=== PATIENT | female | born 1985 | race Caucasian/White ===

== ENCOUNTER 2018-07-26 21:17 | Inpatient (IN) ==
[2018-07-26] MEDS ORDERED: Acetaminophen 325 MG Tablet PO ONE (21:57)
[2018-07-26] MEDS ORDERED: Sod Chloride 0.9% Inj 1,000 ML IV.SIG SCH (22:00)
--- NOTE | 2018-07-26 22:34 | XR ---
EXAM DATE: 07/26/2018 10:30 PM EST AGE/SEX: 32 years / Female INDICATIONS: Chest pain. CLINICAL DATA: This is the patient's initial encounter. Patient reports that signs and symptoms have been present for 1 day and indicates a pain score of 5/10. MEDICAL/SURGICAL HISTORY: None. None. COMPARISON: No prior exams available for comparison. FINDINGS: Bilateral, primarily basilar infiltrates and small effusions. Cardiac contours are grossly satisfacto ry. CONCLUSION: Bilateral infiltrates and small effusions Electronically signed by: Ramiro Smiley MD Board Certified Radiologist 07/26/2018 10:33 PM EST
[2018-07-26 22:41] LABS: Baso % (Auto) 0.1 % (0.0-2.0); Eos % (Auto) 0.1 % (0.0-4.0); Hematocrit 32.8 % (35.0-46.0); Hemoglobin 11.2 gm/dL (11.6-15.3); Lymph # (Auto) 1.9 th/mm3 (1.0-4.8); Lymph % (Auto) 13.5 % (9.0-44.0); Mean Corpuscular HGB Conc 34.1 % (32.0-36.0); Mean Corpuscular Volume 84.9 fL (80.0-100.0); Mean Platelet Volume 7.7 fL (7.0-11.0); Mono # (Auto) 1.1 th/mm3 (0.0-0.9); Neut # (Auto) 11.1 th/mm3 (1.8-7.7); Neut % (Auto) 78.3 % (16.0-70.0); Platelet Count 354 th/mm3 (150-450); Red Blood Count 3.86 mil/mm3 (4.00-5.30); White Blood Count 14.1 th/mm3 (4.0-11.0)
[2018-07-26 22:53] LABS: Alkaline Phosphatase 267 U/L (45-117); Total Protein 8.3 g/dL (6.4-8.2)
[2018-07-26] MEDS ORDERED: Vancomycin Inj 1,000 MG in Sodium Chlor 0.9% Inj 250 ML IV.SIG ONE (22:59)
[2018-07-26 23:00] LABS: Bacteria,Urine Occasional /hpf; Bilirubin,Urine Negative (Negative); Clarity,Urine Hazy (Clear); Color,Urine Amber (Yellw/Straw); Glucose,Urine (UA) Negative (Negative); Leukocyte Esterase,Urine Small (Negative); Mucus,Urine Few /lpf (Occasional); Nitrite,Urine Negative (Negative); Specific Gravity,Urine 1.016 (1.002-1.035); Squamous Epithelial Cell,Urine 5 /hpf (0-5); Urobilinogen,Urine 4 or Greater mg/dL (Less than 2)
[2018-07-26] MEDS ORDERED: Piperacil/Tazo 4.5 GM Premix 4.5 GM/100 ML BAG IV.SIG SCH (23:00)
[2018-07-26 23:02] LABS: Alanine Aminotransferase 22 U/L (10-53); Albumin 2.5 g/dL (3.4-5.0); Anion Gap 9 meq/L (5-15); Aspartate Aminotransferase 31 U/L (15-37); Blood Urea Nitrogen 4 mg/dL (7-18); Calcium 8.1 mg/dL (8.5-10.1); Carbon Dioxide 30.3 meq/L (21.0-32.0); Chloride 94 meq/L (98-107); Glomerular Filtration Rate Greater Than 89 mL/min (>89); Glucose,Random 119 mg/dL (74-106); Magnesium 1.6 mg/dL (1.5-2.5); Potassium 3.2 meq/L (3.5-5.1); Sodium 133 meq/L (136-145)
[2018-07-26 23:25] LABS: Amphetamine Screen,Urine Neg (Neg); Barbiturate Screen,Urine Neg (Neg); Cannabinoid Screen,Urine Neg (Neg); Cocaine Screen,Urine Neg (Neg)
[2018-07-26 23:27] LABS: Opiate Screen,Urine Pos (Neg)
--- NOTE | 2018-07-26 23:52 | ED ---
HPI General Chief complaint: Chest Pain Stated complaint: chest and back pain complaint Time Seen by Provider: 07/26/18 21:55 Source: patient Mode of arrival: ambulatory Limitations: no limitations History of Present Illness HPI narrative: 32-year-old female came to the emergency room with history of cough, fever, chest pain for past 10 days. Patient is an IV drug abuser. Patient says that the last time she injected IV Dilaudid was 1 month back. No known sick contacts. However patient says that her son has started to cough for past 2 days as well. Patient had a temperature of 102.5 upon arrival. She says she has been taking Tylenol but the last dose was in the morning. Tachycardic upon arrival. She is awake and answering questions appropriately. Patient denies having any previous endocarditis, hepatitis or HIV. She describes the chest pain on the left side without any radiation. No aggravating or relieving symptoms identified. Related Data Home Medications Medication Instructions Recorded Confirmed No Known Home Medications 07/26/18 07/26/18 Allergies Allergy/AdvReac Type Severity Reaction Status Date / Time No Known Allergies Allergy Verified 07/26/18 21:23 Review of Systems ROS: all other systems reviewed are negative [facility] Medical History Medical History IV drug abuse (Acute) Surgical History Surgical History No history of previous surgery (Acute) Family History Family History Other Family history normal Social History Social History Substance History: Active Abuse Second Hand Smoke Exposure: Yes Smoking Status: Current every day smoker Tobacco Type: Cigarettes How Often Do You Have a Drink Containing Alcohol: Never Recent Travel in [facility] within the Last 8 Weeks: No Recent Out of Country Travel within the Last 8 Weeks: No Substance Abuse Detail Opiates: Substance Use Status: Early Remission Route Used Substance Abuse: Intravenously Immunization History Tetanus Immunization: >5 Years Exam Narrative Exam Narrative: GENERAL: Awake, alert, anxious, moderate distress SKIN: Focused skin assessment warm/dry. HEAD: Atraumatic. Normocephalic. EYES: Pupils equal and round. No scleral icterus. No injection or drainage. ENT: No nasal bleeding or discharge. Mucous membranes pink and moist. NECK: Trachea midline. No JVD. CARDIOVASCULAR: Regular rate and rhythm. No murmur appreciated. RESPIRATORY: No accessory muscle use. Fine bibasilar crackles GASTROINTESTINAL: Abdomen soft, non-tender, nondistended. Hepatic and splenic margins not palpable. MUSCULOSKELETAL: No obvious deformities. No clubbing. No cyanosis. No edema. NEUROLOGICAL: Awake and alert. No obvious cranial nerve deficits. Motor grossly within normal limits. Normal speech. PSYCHIATRIC: Appropriate mood and affect; insight and judgment normal. Procedures Ultrasound POC Ultrasound Procedure: Emergency department cardiac ultrasound was performed with patient consent. Small curvilinear probe was used in the epigastric, parasternal long/short access, four-chamber apical revealing no evidence of pericardial effusion. Patient's overall cardiac squeeze was hyper dynamic. I could see a large vegetation on the mitral valve leaflet. Course Initial Documented Vital Signs Temperature 102.7 F H 07/26/18 21:21 Pulse Rate 119 H 07/26/18 21:21 Respiratory Rate 18 07/26/18 21:21 Blood Pressure 114/58 L 07/26/18 21:21 Pulse Oximetry 97 07/26/18 21:21 Last Documented Vital Signs Temperature 97.9 F 08/02/18 04:00 Pulse Rate 39 L 08/02/18 04:00 Respiratory Rate 18 08/02/18 04:00 Blood Pressure 123/64 08/02/18 04:00 Pulse Oximetry 99 08/02/18 04:00 Critical Care Time Critical Care Time: Yes Total Critical Care Time: 30 Attestation: Aggregate critical care time was 30 minutes. Time to perform other separately billable procedures was not included in the critical care time. My time did not include minutes spent treating any other patients simultaneously or on activities that did not directly contribute to the patient's treatment. The services I provided to this patient were to treat and/or prevent clinically significant deterioration that could result in: Sepsis, possible bacterial endocarditis, IV drug abuse, sepsis protocol I provided critical care services requiring my management, as noted below: Chart data review, documentation time, medication orders and management, vital sign assessments/reviewing monitor data, ordering and reviewing lab tests, ordering and interpreting/reviewing x-rays and diagnostic studies, care of the patient and discussion of the patient with the admitting physicians. Medical Decision Making MDM Narrative Medical decision making narrative: 11:30 PM given her IV drug abuse history I did a quick bedside [id number] ultrasound looking at her heart. I could see a large vegetation in the mitral valve. Heart was hyperdynamic. Blood test results are back and patient has leukocytosis with left shift. Chest x-ray is suggestive of bilateral infiltrates and small bilateral pleural effusion. My suspicion is extremely high for rectal endocarditis. I have given her IV Zosyn and IV vancomycin. I discussed this with the hospitalist was accepted the patient. Have ordered a 2D echocardiogram which I was told would be done in the morning. Medical Screen Exam Complete: Yes Emergency Medical Condition: Yes Lab Data Result diagrams: 07/29/18 10:14 07/29/18 10:14 Lab Results 07/26/18 07/26/18 07/26/18 Range/Units 22:15 22:15 22:15 WBC 14.1 H (4.0-11.0) th/mm3 RBC 3.86 L (4.00-5.30) mil/mm3 Hgb 11.2 L (11.6-15.3) gm/dL Hct 32.8 L (35.0-46.0) % MCV 84.9 (80.0-100.0) fL MCH 29.0 (27.0-34.0) pg MCHC 34.1 (32.0-36.0) % RDW 15.0 (11.6-17.2) % Plt Count 354 (150-450) th/mm3 MPV 7.7 (7.0-11.0) fL Neut % (Auto) 78.3 H (16.0-70.0) % Lymph % (Auto) 13.5 (9.0-44.0) % Mclean % (Auto) 8.0 (0.0-8.0) % Eos % (Auto) 0.1 (0.0-4.0) % Baso % (Auto) 0.1 (0.0-2.0) % Neut # (Auto) 11.1 H (1.8-7.7) th/mm3 Lymph # (Auto) 1.9 (1.0-4.8) th/mm3 Mclean # (Auto) 1.1 H (0.0-0.9) th/mm3 Eos # (Auto) 0.0 (0.0-0.4) th/mm3 Baso # (Auto) 0.0 (0.0-0.2) th/mm3 WBC Differential . Differential Comment Auto diff final Sodium 133 L (136-145) meq/L Potassium 3.2 L (3.5-5.1) meq/L Chloride 94 L (98-107) meq/L Carbon Dioxide 30.3 (21.0-32.0) meq/L Anion Gap 9 (5-15) meq/L BUN 4 L (7-18) mg/dL Creatinine 0.63 (0.50-1.00) mg/dL Estimated GFR Greater than 89 (>89) mL/min Random Glucose 119 H (74-106) mg/dL Lactic Acid 1.5 (0.4-2.0) mmol/L Calcium 8.1 L (8.5-10.1) mg/dL Magnesium 1.6 (1.5-2.5) mg/dL Total Bilirubin 0.9 (0.2-1.0) mg/dL AST 31 (15-37) U/L ALT 22 (10-53) U/L Alkaline Phosphatase 267 H (45-117) U/L Total Protein 8.3 H (6.4-8.2) g/dL Albumin 2.5 L (3.4-5.0) g/dL Urine Color (Yellw/Straw) Urine Clarity (Clear) Urine pH (5.0-8.5) Ur Specific [employer] Mdl (1.002-1.035) Urine Protein (Neg-Trace) mg/dL Urine Glucose (UA) (Negative) mg/dL Urine Ketones (Negative) mg/dL Urine Occult Blood (Negative) Urine Nitrate (Negative) Urine Bilirubin (Negative) Urine Urobilinogen (Less than 2) mg/dL Ur Leukocyte Esterase (Negative) Urine RBC (0-3) /hpf Urine WBC (0-5) /hpf Ur Squamous Epith Cells (0-5) /hpf Urine Bacteria (None) /hpf Urine Mucus (Occasional) /lpf Micro UA Comment Ur Microscopic Review Urine Culture Comments Vancomycin Trough (5.0-10.0) mcg/mL Urine Opiates Screen (Neg) Ur Barbiturates Screen (Neg) Ur Amphetamines Screen (Neg) U Benzodiazepines Scrn (Neg) Urine Cocaine Screen (Neg) U Cannabinoids Screen (Neg) RPR (Nonreactive) Chlam trachomat DNA PCR (Not Detect) Hepatitis A IgM Ab (Nonreactive) Hep Bs Antigen (Nonreactive) Hep B Core IgM Ab (Nonreactive) Hep C IgG Ab (Nonreactive) HIV 1&2 Ab/P24 Ag 4thGn (Nonreactive) N.gonorrhoeae DNA (PCR) (Not Detect) 07/26/18 07/26/18 07/26/18 Range/Units 22:30 22:30 22:30 WBC (4.0-11.0) th/mm3 RBC (4.00-5.30) mil/mm3 Hgb (11.6-15.3) gm/dL Hct (35.0-46.0) % MCV (80.0-100.0) fL MCH (27.0-34.0) pg MCHC (32.0-36.0) % RDW (11.6-17.2) % Plt Count (150-450) th/mm3 MPV (7.0-11.0) fL Neut % (Auto) (16.0-70.0) % Lymph % (Auto) (9.0-44.0) % Mclean % (Auto) (0.0-8.0) % Eos % (Auto) (0.0-4.0) % Baso % (Auto) (0.0-2.0) % Neut # (Auto) (1.8-7.7) th/mm3 Lymph # (Auto) (1.0-4.8) th/mm3 Mclean # (Auto) (0.0-0.9) th/mm3 Eos # (Auto) (0.0-0.4) th/mm3 Baso # (Auto) (0.0-0.2) th/mm3 WBC Differential Differential Comment Sodium (136-145) meq/L Potassium (3.5-5.1) meq/L Chloride (98-107) meq/L Carbon Dioxide (21.0-32.0) meq/L Anion Gap (5-15) meq/L BUN (7-18) mg/dL Creatinine (0.50-1.00) mg/dL Estimated GFR (>89) mL/min Random Glucose (74-106) mg/dL Lactic Acid (0.4-2.0) mmol/L Calcium (8.5-10.1) mg/dL Magnesium (1.5-2.5) mg/dL Total Bilirubin (0.2-1.0) mg/dL AST (15-37) U/L ALT (10-53) U/L Alkaline Phosphatase (45-117) U/L Total Protein (6.4-8.2) g/dL Albumin (3.4-5.0) g/dL Urine Color Lu[place] (Yellw/Straw) Urine Clarity Hazy H (Clear) Urine pH 6.0 (5.0-8.5) Ur Specific [employer] Mdl 1.016 (1.002-1.035) Urine Protein 100 H (Neg-Trace) mg/dL Urine Glucose (UA) Negative (Negative) mg/dL Urine Ketones Negative (Negative) mg/dL Urine Occult Blood Small H (Negative) Urine Nitrate Negative (Negative) Urine Bilirubin Negative (Negative) Urine Urobilinogen 4 or greater (Less than 2) mg/dL Ur Leukocyte Esterase Small H (Negative) Urine RBC 3 (0-3) /hpf Urine WBC 4 (0-5) /hpf Ur Squamous Epith Cells 5 (0-5) /hpf Urine Bacteria Occasional H (None) /hpf Urine Mucus Few H (Occasional) /lpf Micro UA Comment Culture not ind Ur Microscopic Review Not Reportable Urine Culture Comments Culture not ind Vancomycin Trough (5.0-10.0) mcg/mL Urine Opiates Screen Pos H (Neg) Ur Barbiturates Screen Neg (Neg) Ur Amphetamines Screen Neg (Neg) U Benzodiazepines Scrn Neg (Neg) Urine Cocaine Screen Neg (Neg) U Cannabinoids Screen Neg (Neg) RPR (Nonreactive) Chlam trachomat DNA PCR Detected (Not Detect) Hepatitis A IgM Ab (Nonreactive) Hep Bs Antigen (Nonreactive) Hep B Core IgM Ab (Nonreactive) Hep C IgG Ab (Nonreactive) HIV 1&2 Ab/P24 Ag 4thGn (Nonreactive) N.gonorrhoeae DNA (PCR) Not detected (Not Detect) 07/27/18 07/27/18 07/28/18 Range/Units 17:00 17:00 23:50 WBC (4.0-11.0) th/mm3 RBC (4.00-5.30) mil/mm3 Hgb (11.6-15.3) gm/dL Hct (35.0-46.0) % MCV (80.0-100.0) fL MCH (27.0-34.0) pg MCHC (32.0-36.0) % RDW (11.6-17.2) % Plt Count (150-450) th/mm3 MPV (7.0-11.0) fL Neut % (Auto) (16.0-70.0) % Lymph % (Auto) (9.0-44.0) % Mclean % (Auto) (0.0-8.0) % Eos % (Auto) (0.0-4.0) % Baso % (Auto) (0.0-2.0) % Neut # (Auto) (1.8-7.7) th/mm3 Lymph # (Auto) (1.0-4.8) th/mm3 Mclean # (Auto) (0.0-0.9) th/mm3 Eos # (Auto) (0.0-0.4) th/mm3 Baso # (Auto) (0.0-0.2) th/mm3 WBC Differential Differential Comment Sodium (136-145) meq/L Potassium (3.5-5.1) meq/L Chloride (98-107) meq/L Carbon Dioxide (21.0-32.0) meq/L Anion Gap (5-15) meq/L BUN (7-18) mg/dL Creatinine (0.50-1.00) mg/dL Estimated GFR (>89) mL/min Random Glucose (74-106) mg/dL Lactic Acid (0.4-2.0) mmol/L Calcium (8.5-10.1) mg/dL Magnesium (1.5-2.5) mg/dL Total Bilirubin (0.2-1.0) mg/dL AST (15-37) U/L ALT (10-53) U/L Alkaline Phosphatase (45-117) U/L Total Protein (6.4-8.2) g/dL Albumin (3.4-5.0) g/dL Urine Color (Yellw/Straw) Urine Clarity (Clear) Urine pH (5.0-8.5) Ur Specific [employer] Mdl (1.002-1.035) Urine Protein (Neg-Trace) mg/dL Urine Glucose (UA) (Negative) mg/dL Urine Ketones (Negative) mg/dL Urine Occult Blood (Negative) Urine Nitrate (Negative) Urine Bilirubin (Negative) Urine Urobilinogen (Less than 2) mg/dL Ur Leukocyte Esterase (Negative) Urine RBC (0-3) /hpf Urine WBC (0-5) /hpf Ur Squamous Epith Cells (0-5) /hpf Urine Bacteria (None) /hpf Urine Mucus (Occasional) /lpf Micro UA Comment Ur Microscopic Review Urine Culture Comments Vancomycin Trough 7.8 (5.0-10.0) mcg/mL Urine Opiates Screen (Neg) Ur Barbiturates Screen (Neg) Ur Amphetamines Screen (Neg) U Benzodiazepines Scrn (Neg) Urine Cocaine Screen (Neg) U Cannabinoids Screen (Neg) RPR Nonreactive (Nonreactive) Chlam trachomat DNA PCR (Not Detect) Hepatitis A IgM Ab (Nonreactive) Hep Bs Antigen (Nonreactive) Hep B Core IgM Ab (Nonreactive) Hep C IgG Ab (Nonreactive) HIV 1&2 Ab/P24 Ag 4thGn Nonreactive (Nonreactive) N.gonorrhoeae DNA (PCR) (Not Detect) 07/29/18 07/29/18 07/29/18 Range/Units 10:14 10:14 10:14 WBC 5.7 (4.0-11.0) th/mm3 RBC 3.23 L (4.00-5.30) mil/mm3 Hgb 9.6 L (11.6-15.3) gm/dL Hct 27.8 L (35.0-46.0) % MCV 86.1 (80.0-100.0) fL MCH 29.6 (27.0-34.0) pg MCHC 34.4 (32.0-36.0) % RDW 15.4 (11.6-17.2) % Plt Count 291 (150-450) th/mm3 MPV 7.9 (7.0-11.0) fL Neut % (Auto) 61.2 (16.0-70.0) % Lymph % (Auto) 27.0 (9.0-44.0) % Mclean % (Auto) 10.0 H (0.0-8.0) % Eos % (Auto) 1.2 (0.0-4.0) % Baso % (Auto) 0.6 (0.0-2.0) % Neut # (Auto) 3.5 (1.8-7.7) th/mm3 Lymph # (Auto) 1.5 (1.0-4.8) th/mm3 Mclean # (Auto) 0.6 (0.0-0.9) th/mm3 Eos # (Auto) 0.1 (0.0-0.4) th/mm3 Baso # (Auto) 0.0 (0.0-0.2) th/mm3 WBC Differential . Differential Comment Auto diff final Sodium 140 (136-145) meq/L Potassium 4.3 (3.5-5.1) meq/L Chloride 104 (98-107) meq/L Carbon Dioxide 30.9 (21.0-32.0) meq/L Anion Gap 5 (5-15) meq/L BUN 3 L (7-18) mg/dL Creatinine 0.55 (0.50-1.00) mg/dL Estimated GFR Greater than 89 (>89) mL/min Random Glucose 122 H (74-106) mg/dL Lactic Acid (0.4-2.0) mmol/L Calcium 8.0 L (8.5-10.1) mg/dL Magnesium (1.5-2.5) mg/dL Total Bilirubin (0.2-1.0) mg/dL AST (15-37) U/L ALT (10-53) U/L Alkaline Phosphatase (45-117) U/L Total Protein (6.4-8.2) g/dL Albumin (3.4-5.0) g/dL Urine Color (Yellw/Straw) Urine Clarity (Clear) Urine pH (5.0-8.5) Ur Specific [employer] Mdl (1.002-1.035) Urine Protein (Neg-Trace) mg/dL Urine Glucose (UA) (Negative) mg/dL Urine Ketones (Negative) mg/dL Urine Occult Blood (Negative) Urine Nitrate (Negative) Urine Bilirubin (Negative) Urine Urobilinogen (Less than 2) mg/dL Ur Leukocyte Esterase (Negative) Urine RBC (0-3) /hpf Urine WBC (0-5) /hpf Ur Squamous Epith Cells (0-5) /hpf Urine Bacteria (None) /hpf Urine Mucus (Occasional) /lpf Micro UA Comment Ur Microscopic Review Urine Culture Comments Vancomycin Trough (5.0-10.0) mcg/mL Urine Opiates Screen (Neg) Ur Barbiturates Screen (Neg) Ur Amphetamines Screen (Neg) U Benzodiazepines Scrn (Neg) Urine Cocaine Screen (Neg) U Cannabinoids Screen (Neg) RPR (Nonreactive) Chlam trachomat DNA PCR (Not Detect) Hepatitis A IgM Ab Nonreactive (Nonreactive) Hep Bs Antigen Nonreactive (Nonreactive) Hep B Core IgM Ab Nonreactive (Nonreactive) Hep C IgG Ab Nonreactive (Nonreactive) HIV 1&2 Ab/P24 Ag 4thGn (Nonreactive) N.gonorrhoeae DNA (PCR) (Not Detect) Imaging Data Radiologist's impression: Chest X-Ray 07/26/18 21:58 CONCLUSION: Bilateral infiltrates and small effusions Abdomen/Pelvis CT 07/28/18 00:00 CONCLUSION: 1. Hepatosplenomegaly. 2. No abscess is seen. 3. Gallbladder wall thickening. This can be seen with hepatic disease. The cause of the gallbladder wall thickening is nonspecific. 4. 3.4 cm cystic area in the right adnexa likely related to a right ovarian cyst. 5. Mild ascites seen in the pelvis. Chest CT 07/28/18 00:00 CONCLUSION: 1. Dense consolidation in the inferior lower lobes, inferior right middle lobe , and inferior left lingula. There is more patchy consolidation in the inferior right upper lobe. This could be secondary to multiple areas of inflammatory change/pneumonia. 2. Adenopathy in the mediastinum. Is nonspecific. It could relate be reactive. 3. Mild bilateral pleural effusions. Lumbar Spine MRI 07/29/18 00:00 CONCLUSION: Small disc protrusions in the low thoracic spine. No evidence of discitis or epidural abscess ECG Data Attestation: I personally reviewed and interpreted this ECG as follows: Interpretation: Twelve-lead EKG was reviewed by me. Sinus rhythm, normal axis, tachycardia, nonspecific ST-T wave changes. Heart rate of 115 bpm. Discharge Plan Discharge Disposition Patient Disposition: ED Admit(ED Internal Use Only) Discharge Order Discharge Orders: ED Use Only Admit Order (Routine); Ordered 07/26/18 Ordered By: Tyrone Hassan Physicians Team ED Provider: Tyrone Hassan Primary Care Provider: Primary Care Sera,No Attending Provider: Jairo Kimbrough Other Providers: Cinthya Harden Status ED Status: Left Department Discharge Information Discharge Date/Time: 07/27/18 02:29
[2018-07-27] MEDS ORDERED: Vancomycin Consult Pharmacy OTHER PRN (00:36)
[2018-07-27] MEDS ORDERED: Bisacodyl 10 MG Supp RECTAL PRN (00:38)
[2018-07-27] MEDS ORDERED: Acetaminophen 325 MG Tablet PO PRN (00:38)
--- NOTE | 2018-07-27 01:15 | P.HP ---
History of Present Illness Service: [facility] Primary Care Physician: No Primary Care Physician History of Present Illness: 32-year-old female with a past medical history significant for IV drug abuse presents to the emergency department for evaluation of back, neck, chest pain and cough productive of white sputum times 2 days. She endorses accompanying fever/chills. She is febrile and tachycardic on admission. Bedside ultrasound done in the emergency department showed large vegetation on the mitral valve leaflet. The patient reports her back pain is migratory and transient stating sometimes it is up by her shoulders and sometimes it is in her lower back. She is ambulating without difficulty. No lower extremity weakness or loss of bowel/ bladder. No abdominal pain. No nausea/vomiting/diarrhea. Inpatient Certification: I certify that the inpatient services were ordered in accordance with Medicare regulations governing the order. This includes certification that hospital inpatient services are reasonable and necessary and in the case of services not specified as inpatient-only under 42 CFR 419.22(n), that they are appropriately provided as inpatient services in accordance to with the 2-midnight benchmark under 43 CFR 412.3(e) Estimated Total Length of Stay (Days): 3 Plans for Post Hospital Care: Not yet determined Review of Systems All other systems reviewed negative except as stated in HPI [facility] - History History Provided By: Patient - Medical History Medical History: Medical History (Last Updated 07/27/18 @ 01:12 by Yin eGe MD) IV drug abuse - Surgical History Surgical History: Surgical History (Last Reviewed 07/27/18 @ 01:12 by Yin Gee MD) No history of previous surgery - Family History Family History: Family History (Last Updated 07/27/18 @ 01:12 by Yin Gee MD) Other Family history normal - Social History I have reviewed the patient's Social History: Yes - Tobacco History Tobacco Use In Past 30 Days: Yes Smoking Status: Current every day smoker Tobacco Type: Cigarettes - Alcohol History How Often Do You Have a Drink Containing Alcohol: Never - Substance Use History Substance History: Active Abuse - Substance Use Type Opiates Status: Early Remission Route Used: Intravenously - Travel History Recent Travel in the [place] Within the Last 8 Weeks: No Recent Travel Out of the Country Within the Last 8 Weeks: No - Immunization History Tetanus Immunization: >5 Years Medications and Allergies Active Medications: Active Medications Acetaminophen (Tylenol) 650 mg PO Q4H PRN PRN Reason: Temp > 100.4 Al Hydroxide/Mg Hydroxide (Milk Of Magnesia Liq) 30 ml PO Q12H PRN PRN Reason: Mild Constipation Bisacodyl (Dulcolax Supp) 10 mg RECTAL DAILY PRN PRN Reason: SEVERE CONSITIPATION Piperacillin/Tazobactam/Dextrose (Zosyn 4.5 Gm Premix) 4.5 gm in 100 mls @ 200 mls/hr IV.SIG ONCE LEXI Last Infusion: 07/26/18 23:45 Dose: Infused Sodium Chloride (Ns Inj) 1,000 mls @ 100 mls/hr IV.CONT .Q10H LEXI Piperacillin/Tazobactam/Dextrose (Zosyn 3.375 Gm Premix) 3.375 gm in 50 mls @ 100 mls/hr IV.SIG Q6H LEXI Lactulose (Lactulose Liq) 30 ml PO DAILY PRN PRN Reason: SEVERE CONSITIPATION Morphine Sulfate (Morphine Inj) 2 mg IV.PUSH Q4H PRN PRN Reason: pain 6-10 Ondansetron HCl (Zofran Inj) 4 mg IV.PUSH Q6H PRN PRN Reason: NAUSEA OR VOMITING Pharmacy Profile Note (Vancomycin Consult Pharmacy) 1 each OTHER UNSCH PRN PRN Reason: Pharmacy to dose Senna/Docusate Sodium (Katie-Colace) 1 tab PO BID [facility] Sennosides (Senokot) 17.2 mg PO Q12H PRN PRN Reason: Moderate Constipation Sodium Chloride (Ns Flush) 2 ml IV.FLUSH BID LEXI Sodium Chloride (Ns Flush) 2 ml IV.FLUSH PRN PRN PRN Reason: FLUSH AFTER USING IV ACCESS Allergies Allergy/AdvReac Type Severity Reaction Status Date / Time No Known Allergies Allergy Verified 07/26/18 21:23 Home Medications Medication Instructions Recorded Confirmed Type No Known Home Medications 07/26/18 07/26/18 History Exam Vital signs: Vital Signs 07/26/18 21:21 07/26/18 21:39 07/26/18 22:15 Temperature 102.7 F H 102.9 F H Pulse Rate 119 H 123 H Respiratory Rate 18 Blood Pressure 114/58 L 107/65 Pulse Oximetry 97 97 97 07/27/18 00:27 07/27/18 00:45 Temperature 99.1 F 99.1 F Pulse Rate 81 Respiratory Rate 14 Blood Pressure 97/58 L Pulse Oximetry 98 Intake & Output 07/26/18 07/26/18 07/27/18 06:59 18:59 06:59 Intake Total 1100 / 1100 Balance 1100 / 1100 Weight 41.73 kg Intake: IV 1100 / 1100 Zosyn 4.5 GM Premix 4.5 gm In 100 / 100 100 ml @ 200 mls/hr IV.SIG ONCE ELXI Rx#:[id number] NS Inj 1,000 ML @ 1000 mls/hr 1000 / 1000 IV.SIG BOLUS LEXI Rx#:[id number] Narrative: Gen.: No acute distress. Thin, female. Head: Normocephalic. Atraumatic. EENT: Pupils equal round and reactive to light. Nose without drainage. Airway intact. Throat without injection. Cardiovascular: Regular rate and rhythm. No murmurs, rubs or gallops. Respiratory: Lungs clear to auscultation bilaterally. No wheezes or rhonchi. Abdomen: Soft, nontender, nondistended. No peritoneal signs. Musculoskeletal: No gross deformities. No edema. Skin: No obvious rashes or erythema. Neuro: Sensory and motor grossly intact. Cranial nerves II through XII grossly intact. Results - Labs CBC & Chem 7: 07/26/18 22:15 07/26/18 22:15 Labs: Laboratory Results - last 24 hr 07/26/18 07/26/18 07/26/18 22:15 22:15 22:15 WBC 14.1 H RBC 3.86 L Hgb 11.2 L Hct 32.8 L MCV 84.9 MCH 29.0 MCHC 34.1 RDW 15.0 Plt Count 354 MPV 7.7 Neut % (Auto) 78.3 H Lymph % (Auto) 13.5 [place] % (Auto) 8.0 Eos % (Auto) 0.1 Baso % (Auto) 0.1 Neut # (Auto) 11.1 H Lymph # (Auto) 1.9 [place] # (Auto) 1.1 H Eos # (Auto) 0.0 Baso # (Auto) 0.0 WBC Differential . Differential Comment Auto diff final Sodium 133 L Potassium 3.2 L Chloride 94 L Carbon Dioxide 30.3 Anion Gap 9 BUN 4 L Creatinine 0.63 Estimated GFR Greater than 89 Random Glucose 119 H Lactic Acid 1.5 Calcium 8.1 L Magnesium 1.6 Total Bilirubin 0.9 AST 31 ALT 22 Alkaline Phosphatase 267 H Total Protein 8.3 H Albumin 2.5 L Urine Color Urine Clarity Urine pH Ur Specific [place] Urine Protein Urine Glucose (UA) Urine Ketones Urine Occult Blood Urine Nitrate Urine Bilirubin Urine Urobilinogen Ur Leukocyte Esterase Urine RBC Urine WBC Ur Squamous Epith Cells Urine Bacteria Urine Mucus Micro UA Comment Ur Microscopic Review Urine Culture Comments Urine Opiates Screen Ur Barbiturates Screen Ur Amphetamines Screen U Benzodiazepines Scrn Urine Cocaine Screen U Cannabinoids Screen 07/26/18 07/26/18 22:30 22:30 WBC RBC Hgb Hct MCV MCH MCHC RDW Plt Count MPV Neut % (Auto) Lymph % (Auto) [place] % (Auto) Eos % (Auto) Baso % (Auto) Neut # (Auto) Lymph # (Auto) [place] # (Auto) Eos # (Auto) Baso # (Auto) WBC Differential Differential Comment Sodium Potassium Chloride Carbon Dioxide Anion Gap BUN Creatinine Estimated GFR Random Glucose Lactic Acid Calcium Magnesium Total Bilirubin AST ALT Alkaline Phosphatase Total Protein Albumin Urine Color [place] Urine Clarity Hazy H Urine pH 6.0 Ur Specific [place] 1.016 Urine Protein 100 H Urine Glucose (UA) Negative Urine Ketones Negative Urine Occult Blood Small H Urine Nitrate Negative Urine Bilirubin Negative Urine Urobilinogen 4 or greater Ur Leukocyte Esterase Small H Urine RBC 3 Urine WBC 4 Ur Squamous Epith Cells 5 Urine Bacteria Occasional H Urine Mucus Few H Micro UA Comment Culture not ind Ur Microscopic Review Not Reportable Urine Culture Comments Culture not ind Urine Opiates Screen Pos H Ur Barbiturates Screen Neg Ur Amphetamines Screen Neg U Benzodiazepines Scrn Neg Urine Cocaine Screen Neg U Cannabinoids Screen Neg - Imaging Impressions Chest X-Ray 07/26/18 21:58 CONCLUSION: Bilateral infiltrates and small effusions Caprini VTE Risk Assessment Caprini VTE Risk Assessment: No/Low Risk (score <= 1) Caprini Risk Assessment Model: Point Value = 1 Point Value = 2 Point Value = 3 Point Value = 5 Age 41-60 Minor surgery BMI > 25 kg/m2 Swollen legs Varicose veins or History of unexplained or recurrent spontaneous Oral contraceptives or hormone replacement Sepsis (< 1 month) Serious lung disease, including pneumonia (< 1 month) Abnormal pulmonary function Acute myocardial infarction Congestive heart failure (< 1 month) History of inflammatory bowel disease Medical patient at bed rest Age 61-74 Arthroscopic surgery Major open surgery (> 45 min) Laparoscopic surgery (> 45 min) Malignancy Confined to bed (> 72 hours) Immobilizing plaster cast Central venous access Age >= 75 History of VTE Family history of VTE Factor V Leiden Prothrombin [id number] Lupus anticoagulant Anticardiolipin antibodies Elevated serum homocysteine Heparin-induced thrombocytopenia Other congenital or acquired thrombophilia Stroke (< 1 month) Elective arthroplasty Hip, pelvis, or leg fracture Acute spinal cord injury (< 1 month) Prophylaxis Regimen: Total Risk Factor Score Risk Level Prophylaxis Regimen 0-1 Low Early ambulation 2 Moderate Order ONE of the following: *Sequential Compression Device (SCD) *Heparin 5000 units SQ BID 3-4 Higher Order ONE of the following medications: *Heparin 5000 units SQ TID *Enoxaparin/Lovenox 40 mg SQ daily (WT < 150 kg, CrCl > 30 mL/min) *Enoxaparin/Lovenox 30 mg SQ daily (WT < 150 kg, CrCl > 10-29 mL/min) *Enoxaparin/Lovenox 30 mg SQ BID (WT < 150 kg, CrCl > 30 mL/min) AND/OR *Sequential Compression Device (SCD) 5 or more Highest Order ONE of the following medications: *Heparin 5000 units SQ TID (Preferred with Epidurals) *Enoxaparin/Lovenox 40 mg SQ daily (WT < 150 kg, CrCl > 30 mL/min) *Enoxaparin/Lovenox 30 mg SQ daily (WT < 150 kg, CrCl > 10-29 mL/min) *Enoxaparin/Lovenox 30 mg SQ BID (WT < 150 kg, CrCl > 30 mL/min) AND *Sequential Compression Device (SCD) Assessment and Plan - Plan Assessment/plan: 1. Sepsis/endocarditis Patient with leukocytosis, fever and tachycardia Bedside ultrasound done in the ED showed vegetation on the mitral valve Blood cultures pending Vancomycin/Zosyn Infectious disease consulted, appreciate assistance 2. IV drug abuse Cessation counseling provided Drug of choice is Dilaudid Last use yesterday FEN Regular diet Electrolytes: Status post p.o. potassium in the ED, monitor BMP NS at 100 cc/hour
[2018-07-27] MEDS: Sod Chloride 0.9% Inj 1,000 ML IV.CONT SCH ×3 (01:28→23:46)
[2018-07-27] MEDS: Morphine Sulfate Inj 2 MG/ML Vial IV.PUSH PRN ×3 (02:31→11:25)
[2018-07-27] MEDS: Piperacil/Tazo 3.375 GM Premix 3.375 GM/50 ML PIGGYBACK IV.SIG SCH ×4 (06:41→23:38)
[2018-07-27] MEDS: Senna/Docusate Sodium 8.6/50 MG Tablet PO SCH ×2 (09:14→23:44)
--- NOTE | 2018-07-27 11:25 | ECHRPT ---
Indication: Sepsis Possible Endocarditis CONCLUSIONS Normal left ventricular size. Wall thickness is normal. The left ventricular systolic function is normal with an estimated ejection fraction in the range of 55-60%. Trace mitral valve regurgitation. There is trace tricuspid valve regurgitation. The estimated pulmonary arterial pressure is 25 mmHg. BP: / HR: Rhythm: MEASUREMENTS (Male / Female) Normal Values Technical Quality:Fair 2D ECHO LV Diastolic Diameter PLAX 3.7 cm 4.2 - 5.9 / 3.9 - 5.3 cm LV Systolic Diameter PLAX 2.6 cm IVS Diastolic Thickness 0.6 cm 0.6 - 1.0 / 0.6 - 0.9 cm LVPW Diastolic Thickness 0.7 cm 0.6 - 1.0 / 0.6 - 0.9 cm LV Relative Wall Thickness 0.4 RV Internal Dim ED PLAX 1.9 cm LVOT Diameter 1.8 cm Aortic Root Diameter 2.5 cm LA Systolic Diameter LX 2.5 cm 3.0 - 4.0 / 2.7 - 3.8 cm DOPPLER AV Peak Velocity 140.0 cm/s AV Peak Gradient 7.8 mmHg LVOT Peak Velocity 130.0 cm/s LVOT Peak Gradient 6.8 mmHg AV Area Cont Eq pk 2.4 cm Mitral E Point Velocity 90.8 cm/s Mitral A Point Velocity 46.9 cm/s Mitral E to A Ratio 1.9 LV E' Lateral Velocity 17.3 cm/s Mitral E to LV E' Lateral Ratio 5.2 LV E' Septal Velocity 14.7 cm/s Mitral E to LV E' Septal Ratio 6.2 TR Peak Velocity 192.0 cm/s TR Peak Gradient 14.7 mmHg Right Atrial Pressure 10.0 mmHg Pulmonary Artery Systolic Pressu 24.7 mmHg Right Ventricular Systolic Press 24.7 mmHg PV Peak Velocity 82.8 cm/s PV Peak Gradient 2.7 mmHg FINDINGS LEFT VENTRICLE Normal left ventricular size. Wall thickness is normal. The left ventricular systolic function is normal with an estimated ejection fraction in the range of 55-60%. RIGHT VENTRICLE Normal right ventricular size and systolic function. LEFT ATRIUM The left atrial size is normal. RIGHT ATRIUM The right atrial size is normal. ATRIAL SEPTUM Normal atrial septal thickness without atrial level shunting by limited color doppler interrogation. AORTA The aortic root and proximal ascending aorta are normal in size on limited imaging. MITRAL VALVE Trace mitral valve regurgitation. AORTIC VALVE Trileaflet aortic valve. No aortic valve stenosis or regurgitation. TRICUSPID VALVE There is trace tricuspid valve regurgitation. The estimated pulmonary arterial pressure is 25 mmHg. PULMONARY VALVE No pulmonary valve regurgitation or stenosis. VESSELS The inferior vena cava is normal in size. PERICARDIUM No pericardial effusion. Christopher Roa MD (Electronically Signed) Final Date:27 July 2018 11:25
[2018-07-27] MEDS: Vancomycin Inj 750 MG in Sodium Chlor 0.9% Inj 250 ML IV.SIG SCH ×2 (11:26→23:38)
--- NOTE | 2018-07-27 11:32 | ECG ---
Date Performed: 07/26/2018 Time Performed: 21:47:39 PTAGE: 32 years EKG: SINUS TACHYCARDIA ST DEVIATION AND MODERATE T-WAVE ABNORMALITY, CONSIDER ANTEROLATERAL ISCH EMIA ST DEVIATION AND MODERATE T-WAVE ABNORMALITY, CONSIDER INFERIOR ISCHEMIA ABNORMAL ECG NO PREVIOUS TRACING DOCTOR: Christopher Roa Interpretating Date/Time 07/27/2018 11:29:47
--- NOTE | 2018-07-27 13:28 | P.PNADD ---
Addendum to Inpatient Note Reason for Addendum: Additional Documentation Additional information: Patient seen, lying in bed, no acute distress. Says that icy hot does not help. Once the patient confirmed that this was the first time she was ever being diagnosed with endocarditis, had a lengthy discussion with her regarding the risks of further IV drug use and noncompliance with appropriate antimicrobial regimen, including premature , heart failure, pulmonary edema, increasing morbidity and mortality. Heart sounds regular rate and rhythm Clear lungs bilaterally, unlabored breathing
--- NOTE | 2018-07-27 14:44 | P.CONID ---
History of Present Illness Service: Infectious disease Consult date: 07/27/18 Requesting Physician: Juan Wall Reason for Consult: Evaluation and management of possible endocarditis, pneumonia Primary Care Provider: No Primary Care Physician History of Present Illness: Ms. Garcia is a 32-year-old female with past medical history significant for IV drug abuse as recent as 2 days back with IV Dilaudid. Patient denies any prior history of endocarditis, abscesses or any history suggestive of epidural abscesses in the past. Patient now presents to the emergency department for evaluation of chest pain and back pain. She reports cough with productive sputum white sometimes yellow in color for at least last 4 days. Patient reports that overall her symptoms seem to have started around 7 days prior to admission. She endorses occasional fevers and chills but denies any night sweats. On admission she was febrile, tachycardic and met criteria for sepsis and workup initiated. Blood cultures done on admission are negative so far. Due to her history of IV drug abuse a 2D echo was done a tentative report was concerning for vegetation. Final report for 2D echo with no vegetations as reported by visual presentation manager who read the echo. Patient denies any tingling numbness in her upper or lower extremities. Patient denies any focal neurological deficits. She denies any bowel bladder incontinence. She denies loss of sensation especially in the saddle area. Infectious diseases consulted for evaluation and management of sepsis, possible endocarditis and pneumonia. Review of Systems All other systems reviewed negative except as stated in HPI [facility] - History History Provided By: Patient - Medical History Medical History: Medical History (Last Updated 07/27/18 @ 01:12 by Yin Gee MD) IV drug abuse - Surgical History Surgical History: Surgical History (Last Reviewed 07/27/18 @ 01:12 by Yin Gee MD) No history of previous surgery - Family History Family History: Family History (Last Updated 07/27/18 @ 01:12 by Yin Gee MD) Other Family history normal - Tobacco History Second Hand Smoke Exposure: Yes Tobacco Use In Past 30 Days: Yes Smoking Status: Current every day smoker Tobacco Type: Cigarettes - Alcohol History How Often Do You Have a Drink Containing Alcohol: Never - Substance Use History Substance History: Active Abuse - Substance Use Type Opiates Status: Early Remission Route Used: Intravenously Last Used: month ago Reason for Use: Get High - Travel History Recent Travel in the [place] Within the Last 8 Weeks: No Recent Travel Out of the Country Within the Last 8 Weeks: No - Immunization History Tetanus Immunization: >5 Years Hx Influenza Vaccine This Season: No Medications and Allergies Active Medications: Active Medications Acetaminophen (Tylenol) 650 mg PO Q4H PRN PRN Reason: Temp > 100.4 Al Hydroxide/Mg Hydroxide (Milk Of Magnesia Liq) 30 ml PO Q12H PRN PRN Reason: Mild Constipation Bisacodyl (Dulcolax Supp) 10 mg RECTAL DAILY PRN PRN Reason: SEVERE CONSITIPATION Sodium Chloride (Ns Inj) 1,000 mls @ 100 mls/hr IV.CONT .Q10H [facility] Last Admin: 07/27/18 11:26 Dose: 100 mls/hr Piperacillin/Tazobactam/Dextrose (Zosyn 3.375 Gm Premix) 3.375 gm in 50 mls @ 100 mls/hr IV.SIG Q6H [facility] Last Infusion: 07/27/18 12:06 Dose: Infused Vancomycin HCl 750 mg/ Sodium (Chloride) 257.5 mls @ 250 mls/hr IV.SIG Q12H [facility] Last Infusion: 07/27/18 12:43 Dose: Infused Lactulose (Lactulose Liq) 30 ml PO DAILY PRN PRN Reason: SEVERE CONSITIPATION Miscellaneous Information ([facility] Ordered Lab Info) 0 each OTHER ONCE ONE Stop: 07/28/18 22:46 Morphine Sulfate (Morphine Inj) 2 mg IV.PUSH Q4H PRN PRN Reason: pain 6-10 Last Admin: 07/27/18 11:25 Dose: 2 mg Ondansetron HCl (Zofran Inj) 4 mg IV.PUSH Q6H PRN PRN Reason: NAUSEA OR VOMITING Pharmacy Profile Note (Vancomycin Consult Pharmacy) 1 each OTHER UNSCH PRN PRN Reason: Pharmacy to dose Senna/Docusate Sodium (Katie-Colace) 1 tab PO BID [facility] Last Admin: 07/27/18 09:14 Dose: Not Given Sennosides (Senokot) 17.2 mg PO Q12H PRN PRN Reason: Moderate Constipation Sodium Chloride (Ns Flush) 2 ml IV.FLUSH BID [facility] Last Admin: 07/27/18 09:14 Dose: Not Given Sodium Chloride (Ns Flush) 2 ml IV.FLUSH PRN PRN PRN Reason: FLUSH AFTER USING IV ACCESS Allergies Allergy/AdvReac Type Severity Reaction Status Date / Time No Known Allergies Allergy Verified 07/26/18 21:23 Home Medications Medication Instructions Recorded Confirmed Type No Known Home Medications 07/26/18 07/26/18 History Exam Vital signs: Vital Signs 07/26/18 21:21 07/26/18 21:39 07/26/18 22:15 Temperature 102.7 F H 102.9 F H Pulse Rate 119 H 123 H Respiratory Rate 18 Blood Pressure 114/58 L 107/65 Pulse Oximetry 97 97 97 07/27/18 00:27 07/27/18 00:45 07/27/18 02:32 Temperature 99.1 F 99.1 F 98.4 F Pulse Rate 81 69 Respiratory Rate 14 17 Blood Pressure 97/58 L 117/62 Pulse Oximetry 98 92 L 07/27/18 08:00 07/27/18 12:00 Temperature 98.3 F 97.9 F Pulse Rate 84 69 Respiratory Rate 17 18 Blood Pressure 112/57 L 112/50 L Pulse Oximetry 97 94 L Intake & Output 07/26/18 07/27/18 07/27/18 18:59 06:59 18:59 Intake Total 1400 / 1400 1307.5 / 1307.5 Balance 1400 / 1400 1307.5 / 1307.5 Weight 44.2 kg Intake: IV 1400 / 1400 1307.5 / 1307.5 NS Inj 1,000 ML @ 100 mls/hr IV 1000 / 1000 .CONT .Q10H LEXI Rx#:[id number] Zosyn 3.375 GM Premix 3.375 gm 50 / 50 50 / 50 In 50 ml @ 100 mls/hr IV.SIG Q6H LEXI Rx#:[id number] Zosyn 4.5 GM Premix 4.5 gm In 100 / 100 100 ml @ 200 mls/hr IV.SIG ONCE LEXI Rx#:[id number] NS Inj 1,000 ML @ 1000 mls/hr 1000 / 1000 IV.SIG BOLUS LEXI Rx#:[id number] Vancomycin Inj 1,000 MG In NS 250 / 250 Inj 250 ML @ 250 mls/hr IV.SIG ONCE ONE Rx#:[id number] Vancomycin Inj 750 MG In NS Inj 257.5 / 257.5 250 ML @ 250 mls/hr IV.SIG Q12H LEXI Rx#:[id number] Other: # Voids 1 Weight On Admission 41.71 kg Narrative: GENERAL: Well-nourished well-developed, not in acute distress SKIN: Cool and dry, no generalized rash HEAD: Atraumatic. Normocephalic. No temporal or scalp tenderness. EYES: Pupils equal round and reactive. Scleral icterus. No injection or drainage. No petechia ENT: Nothing abnormal detected NECK: Trachea midline. Supple, nontender, no meningeal signs. CARDIOVASCULAR: HS audible. RESPIRATORY: Clear to auscultation bilaterally. GASTROINTESTINAL: Abdomen soft nontender. MUSCULOSKELETAL: Extremities without clubbing, cyanosis. 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 NEUROLOGICAL: Alert oriented 3. Nonfocal. Psych cooperative IV line sites ok. Results - Labs CBC & Chem 7: 07/26/18 22:15 07/26/18 22:15 Labs: Laboratory Results - last 24 hr 07/26/18 07/26/18 07/26/18 22:15 22:15 22:15 WBC 14.1 H RBC 3.86 L Hgb 11.2 L Hct 32.8 L MCV 84.9 MCH 29.0 MCHC 34.1 RDW 15.0 Plt Count 354 MPV 7.7 Neut % (Auto) 78.3 H Lymph % (Auto) 13.5 [place] % (Auto) 8.0 Eos % (Auto) 0.1 Baso % (Auto) 0.1 Neut # (Auto) 11.1 H Lymph # (Auto) 1.9 [place] # (Auto) 1.1 H Eos # (Auto) 0.0 Baso # (Auto) 0.0 WBC Differential . Differential Comment Auto diff final Sodium 133 L Potassium 3.2 L Chloride 94 L Carbon Dioxide 30.3 Anion Gap 9 BUN 4 L Creatinine 0.63 Estimated GFR Greater than 89 Random Glucose 119 H Lactic Acid 1.5 Calcium 8.1 L Magnesium 1.6 Total Bilirubin 0.9 AST 31 ALT 22 Alkaline Phosphatase 267 H Total Protein 8.3 H Albumin 2.5 L Urine Color Urine Clarity Urine pH Ur Specific [place] Urine Protein Urine Glucose (UA) Urine Ketones Urine Occult Blood Urine Nitrate Urine Bilirubin Urine Urobilinogen Ur Leukocyte Esterase Urine RBC Urine WBC Ur Squamous Epith Cells Urine Bacteria Urine Mucus Micro UA Comment Ur Microscopic Review Urine Culture Comments Urine Opiates Screen Ur Barbiturates Screen Ur Amphetamines Screen U Benzodiazepines Scrn Urine Cocaine Screen U Cannabinoids Screen 07/26/18 07/26/18 22:30 22:30 WBC RBC Hgb Hct MCV MCH MCHC RDW Plt Count MPV Neut % (Auto) Lymph % (Auto) [place] % (Auto) Eos % (Auto) Baso % (Auto) Neut # (Auto) Lymph # (Auto) [place] # (Auto) Eos # (Auto) Baso # (Auto) WBC Differential Differential Comment Sodium Potassium Chloride Carbon Dioxide Anion Gap BUN Creatinine Estimated GFR Random Glucose Lactic Acid Calcium Magnesium Total Bilirubin AST ALT Alkaline Phosphatase Total Protein Albumin Urine Color Lu[place] Maria Urine Clarity Hazy H Urine pH 6.0 Ur Specific [place] 1.016 Urine Protein 100 H Urine Glucose (UA) Negative Urine Ketones Negative Urine Occult Blood Small H Urine Nitrate Negative Urine Bilirubin Negative Urine Urobilinogen 4 or greater Ur Leukocyte Esterase Small H Urine RBC 3 Urine WBC 4 Ur Squamous Epith Cells 5 Urine Bacteria Occasional H Urine Mucus Few H Micro UA Comment Culture not ind Ur Microscopic Review Not Reportable Urine Culture Comments Culture not ind Urine Opiates Screen Pos H Ur Barbiturates Screen Neg Ur Amphetamines Screen Neg U Benzodiazepines Scrn Neg Urine Cocaine Screen Neg U Cannabinoids Screen Neg - Imaging Impressions Chest X-Ray 07/26/18 21:58 CONCLUSION: Bilateral infiltrates and small effusions Assessment and Plan - Plan Sepsis present on admission(fever, tachycardia, leukocytosis as well as source pneumonia) Pneumonia,? Septic emboli related. Rule out endocarditis. 2D echo was negative but if patient develops bacteremia especially if it is persistent she may need further workup including a NARENDRA IV drug abuse with Dilaudid Recommendations: Continue Zosyn IV Continue vancomycin IV target trough 15-20 Follow blood cultures Check hepatitis profile as well as HIV antibody screen patient consented for the same. Check RPR, GC and Chlamydia. Check CT chest abdomen pelvis with contrast to rule out septic emboli related pulmonary infarcts as well as infarcts/abscesses to other vital organs in the abdomen/pelvis. Follow cultures Follow clinical course Case discussed with Dr. Bertrand.
[2018-07-27] MEDS ORDERED: Methadone 10 MG Tablet PO ONE (16:30)
[2018-07-27] MEDS: Lidocaine 5% Patch T-DERMAL SCH (17:13)
[2018-07-27] MEDS: guaiFENesin/Dextromethorphan 200 MG/20 MG 10 ML UDC PO PRN (23:39)
[2018-07-28] MEDS: Piperacil/Tazo 3.375 GM Premix 3.375 GM/50 ML PIGGYBACK IV.SIG SCH ×4 (06:23→23:05)
[2018-07-28] MEDS: Sod Chloride 0.9% Inj 1,000 ML IV.CONT SCH ×3 (06:23→17:47)
[2018-07-28] MEDS: Lidocaine 5% Patch T-DERMAL SCH (09:31)
[2018-07-28] MEDS: Senna/Docusate Sodium 8.6/50 MG Tablet PO SCH ×2 (09:31→22:45)
[2018-07-28] MEDS: Vancomycin Inj 750 MG in Sodium Chlor 0.9% Inj 250 ML IV.SIG SCH ×2 (10:58→23:03)
[2018-07-28] MEDS ORDERED: Diatrizoate Meglum/Diatrizoate Sod Liq 9 ML UDC PO ONE (12:00)
[2018-07-28] MEDS: guaiFENesin/Dextromethorphan 200 MG/20 MG 10 ML UDC PO PRN ×3 (13:08→23:04)
[2018-07-28] MEDS ORDERED: Methadone 10 MG Tablet PO ONE (15:08)
--- NOTE | 2018-07-28 16:59 | P.PNID ---
Subjective Remarks: Delayed entry patient seen at approximately 1 PM Ms. Garcia is a 32-year-old female with past medical history significant for IV drug abuse as recent as 2 days back with IV Dilaudid. Patient denies any prior history of endocarditis, abscesses or any history suggestive of epidural abscesses in the past. Patient now presents to the emergency department for evaluation of chest pain and back pain. She reports cough with productive sputum white sometimes yellow in color for at least last 4 days. Patient reports that overall her symptoms seem to have started around 7 days prior to admission. She endorses occasional fevers and chills but denies any night sweats. On admission she was febrile, tachycardic and met criteria for sepsis and workup initiated. Blood cultures done on admission are negative so far. Due to her history of IV drug abuse a 2D echo was done a tentative report was concerning for vegetation. Final report for 2D echo with no vegetations as reported by occupational health nurse manager who read the echo. Patient denies any tingling numbness in her upper or lower extremities. Patient denies any focal neurological deficits. She denies any bowel bladder incontinence. She denies loss of sensation especially in the saddle area. Infectious diseases consulted for evaluation and management of sepsis, possible endocarditis and pneumonia. Overnight events reviewed Patient is still coughing but appears to have improved with antitussives. She was able to expectorate and sputum cultures are still pending. No fever No rash No diarrhea Is consuming her oral contrast for CT imaging is planned Antibiotics: Zosyn IV Vancomycin IV Lines: Line sites with no evidence of infection. Past Medical History: Reviewed. Allergies/Adverse Reactions: Allergies No Known Allergies Allergy (Verified 07/26/18 21:23) Objective Vital Signs 07/27/18 20:00 07/28/18 00:00 07/28/18 04:00 Temperature 98.6 F 100.7 F H 98.3 F Pulse Rate 71 75 65 Respiratory Rate 20 20 20 Blood Pressure 115/64 120/58 L 109/61 Pulse Oximetry 96 97 98 07/28/18 08:00 07/28/18 09:31 07/28/18 12:00 Temperature 98.5 F 99.2 F Pulse Rate 65 52 L 61 Respiratory Rate 19 18 Blood Pressure 104/55 L 130/63 Pulse Oximetry 96 98 100 Intake & Output 07/27/18 07/28/18 07/28/18 18:59 06:59 18:59 Intake Total 2309.5 / 2309.5 2357.5 / 2357.5 1307.5 / 1307.5 Balance 2309.5 / 2309.5 2357.5 / 2357.5 1307.5 / 1307.5 Weight 44 kg 48 kg Intake: IV 1809.5 / 1809.5 2357.5 / 2357.5 1307.5 / 1307.5 NS Inj 1,000 ML @ 100 mls/hr IV 1452 / 1452 2000 / 2000 1000 / 1000 .CONT .Q10H [facility] Rx#:[id number] Zosyn 3.375 GM Premix 3.375 gm 100 / 100 100 / 100 50 / 50 In 50 ml @ 100 mls/hr IV.SIG Q6H [facility] Rx#:[id number] Vancomycin Inj 750 MG In NS Inj 257.5 / 257.5 257.5 / 257.5 257.5 / 257.5 250 ML @ 250 mls/hr IV.SIG Q12H [facility] Rx#:[id number] Oral 500 / 500 Other: # Voids 4 2 Date of Last Bowel Movement 07/27/18 # Bowel Movements 1 1 07/28/18 00:15 Sputum - Expectorated Sputum Gram Stain - Final 07/28/18 00:15 Sputum - Expectorated Sputum Sputum Culture - Pending 07/26/18 22:05 Blood - Peripheral Aerobic Blood Culture - Preliminary No growth in 2 days 07/26/18 22:05 Blood - Peripheral Anaerobic Blood Culture - Preliminary No growth in 2 days 07/26/18 22:15 Blood - Peripheral Aerobic Blood Culture - Preliminary No growth in 2 days 07/26/18 22:15 Blood - Peripheral Anaerobic Blood Culture - Preliminary No growth in 2 days 07/26/18 23:15 Nasal Wash Influenza Types A,B Antigen - Final Negative for FLU A and B antigen Infection due to influenza A or B cannot be ruled out since the antigen present in the sample may be below the detection limit of the test. Lab - Hematology Results 07/26/18 22:15 WBC 14.1 H RBC 3.86 L Hgb 11.2 L Hct 32.8 L MCV 84.9 MCH 29.0 MCHC 34.1 RDW 15.0 Plt Count 354 MPV 7.7 Neut % (Auto) 78.3 H Lymph % (Auto) 13.5 Lake % (Auto) 8.0 Eos % (Auto) 0.1 Baso % (Auto) 0.1 Neut # (Auto) 11.1 H Lymph # (Auto) 1.9 Lake # (Auto) 1.1 H Eos # (Auto) 0.0 Baso # (Auto) 0.0 WBC Differential . Differential Comment Auto diff final Lab - Chemistry Results 07/26/18 07/26/18 22:15 22:15 Sodium 133 L Potassium 3.2 L Chloride 94 L Carbon Dioxide 30.3 Anion Gap 9 BUN 4 L Creatinine 0.63 Estimated GFR Greater than 89 Random Glucose 119 H Lactic Acid 1.5 Calcium 8.1 L Magnesium 1.6 Total Bilirubin 0.9 AST 31 ALT 22 Alkaline Phosphatase 267 H Total Protein 8.3 H Albumin 2.5 L Imaging: ITS Impressions Chest X-Ray 07/26/18 21:58 CONCLUSION: Bilateral infiltrates and small effusions Physical Exam: GENERAL: Well-nourished well-developed, not in acute distress SKIN: Cool and dry, no generalized rash HEAD: Atraumatic. Normocephalic. No temporal or scalp tenderness. EYES: Pupils equal round and reactive. Scleral icterus. No injection or drainage. No petechia ENT: Nothing abnormal detected NECK: Trachea midline. Supple, nontender, no meningeal signs. CARDIOVASCULAR: HS audible. RESPIRATORY: Clear to auscultation bilaterally. GASTROINTESTINAL: Abdomen soft nontender. MUSCULOSKELETAL: Extremities without clubbing, cyanosis. 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 NEUROLOGICAL: Alert oriented 3. Nonfocal. Psych cooperative IV line sites ok. Assessment and Plan - Plan Sepsis present on admission(fever, tachycardia, leukocytosis as well as source pneumonia) Pneumonia,? Septic emboli related. Rule out endocarditis. 2D echo was negative but if patient develops bacteremia especially if it is persistent she may need further workup including a NARENDRA IV drug abuse with Dilaudid Recommendations: Continue Zosyn IV Continue vancomycin IV target trough 15-20 Follow blood cultures Check Hepatitis profile whenever next blood drawn. RPR pending. GC and Chlamydia negative HIV negative. Follow CT chest abdomen pelvis with contrast to rule out septic emboli related pulmonary infarcts as well as infarcts/abscesses to other vital organs in the abdomen/pelvis. Follow cultures Follow clinical course Case discussed with patient and RN.
--- NOTE | 2018-07-28 17:18 | P.PNIM ---
Subjective Interval history: Nursing denies any acute changes overnight. Says that the patient had the Lidoderm patch and did not ask for any for the pain medication. Patient herself has no new complaints. Physical Exam Vital signs: Vital Signs 07/27/18 20:00 07/28/18 00:00 07/28/18 04:00 Temperature 98.6 F 100.7 F H 98.3 F Pulse Rate 71 75 65 Respiratory Rate 20 20 20 Blood Pressure 115/64 120/58 L 109/61 Pulse Oximetry 96 97 98 07/28/18 08:00 07/28/18 09:31 07/28/18 12:00 Temperature 98.5 F 99.2 F Pulse Rate 65 52 L 61 Respiratory Rate 19 18 Blood Pressure 104/55 L 130/63 Pulse Oximetry 96 98 100 07/28/18 16:00 Temperature 99.8 F H Pulse Rate 71 Respiratory Rate 19 Blood Pressure 133/76 Pulse Oximetry 98 Intake & Output 07/27/18 07/28/18 07/28/18 18:59 06:59 18:59 Intake Total 2309.5 / 2309.5 2357.5 / 2357.5 1307.5 / 1307.5 Balance 2309.5 / 2309.5 2357.5 / 2357.5 1307.5 / 1307.5 Weight 44 kg 48 kg Intake: IV 1809.5 / 1809.5 2357.5 / 2357.5 1307.5 / 1307.5 NS Inj 1,000 ML @ 100 mls/hr IV 1452 / 1452 2000 / 2000 1000 / 1000 .CONT .Q10H [facility] Rx#:[id number] Zosyn 3.375 GM Premix 3.375 gm 100 / 100 100 / 100 50 / 50 In 50 ml @ 100 mls/hr IV.SIG Q6H [facility] Rx#:[id number] Vancomycin Inj 750 MG In NS Inj 257.5 / 257.5 257.5 / 257.5 257.5 / 257.5 250 ML @ 250 mls/hr IV.SIG Q12H [facility] Rx#:[id number] Oral 500 / 500 Other: # Voids 4 2 Date of Last Bowel Movement 07/27/18 # Bowel Movements 1 1 Narrative: White female, lying in bed, awake and alert, no acute distress Clear lungs bilaterally, unlabored breathing Heart is regular rate and rhythm, no murmurs Results - Labs CBC & Chem 7: 07/26/18 22:15 07/26/18 22:15 Laboratory Results - last 24 hr 07/27/18 17:00 HIV 1&2 Ab/P24 Ag 4thGn Nonreactive Microbiology 07/28/18 00:15 Sputum - Expectorated Sputum Gram Stain - Final 07/26/18 22:05 Blood - Peripheral Aerobic Blood Culture - Preliminary No growth in 2 days 07/26/18 22:05 Blood - Peripheral Anaerobic Blood Culture - Preliminary No growth in 2 days 07/26/18 22:15 Blood - Peripheral Aerobic Blood Culture - Preliminary No growth in 2 days 07/26/18 22:15 Blood - Peripheral Anaerobic Blood Culture - Preliminary No growth in 2 days Assessment and Plan - Plan 32-year-old white female admitted with sepsis secondary to suspected endocarditis. Hemodynamically stable upon admission Sepsis/endocarditis -Her bedside sonogram was concerning for tricuspid valve vegetation. Echo by cardiology from 07/27 is negative for vegetation. Per ID we will perform CT - workup to see if vegetation may have embolized to the lungs, etc. -IV vancomycin -Blood cultures negative times 2 days IV drug abuse -Refraining from all narcotics except for methadone given very sporadically Leukocytosis Suspect secondary to sepsis, awaiting for repeat values Hypokalemia Mild upon presentation but no repeat values present despite orders, reordering
--- NOTE | 2018-07-28 17:52 | CT ---
EXAM DATE: 07/28/2018 5:43 PM EST AGE/SEX: 32 years / Female INDICATIONS: Pneumonia CLINICAL DATA: This is the patient's initial encounter. Patient reports that signs and symptoms have been present for 1 day and indicates a pain score of 5/10. MEDICAL/SURGICAL HISTORY: None. None. RADIATION DOSE: 5.1 CTDI (mGy) ; Combined studies COMPARISON: [facility], CHEST 1V SINGLE AP, 07/26/2018. . TECHNIQUE: Multiple contiguous axial images were obtained through the chest during bolus infusion of 75 ml Omnipaque 350 (iohexol) nonionic water-soluble contrast as a cumulative dose for multiple exa ms. Images were obtained in suspended respiration using multiple row detector helical technique. U sing automated exposure control and adjustment of the mA and/or kV according to patient size, radiati on dose was kept as low as reasonably achievable to obtain optimal diagnostic quality images. DICOM format image data is available electronically for review and comparison. FINDINGS: Lungs: There are dense areas of consolidation seen at the lower lobes bilaterally and in the inferio r aspect of the right middle lobe and left lingula.. There is patchy density seen at the anterior inf erior aspect of the right upper lobe with rising the minor fissure. Mediastinum: There are prominent lymph nodes in the prevascular, precarinal, subcarinal, and left an d right tracheobronchial regions and hilar regions Pleurae: There are mild bilateral pleural effusions. Axillae: Unremarkable. Bony Structures: Unremarkable. Miscellaneous: The examination was extended to include the upper abdomen, and both adrenal glands ar e normal in size and configuration. The liver appears heterogeneous. The spleen appears prominent. CONCLUSION: 1. Dense consolidation in the inferior lower lobes, inferior right middle lobe, and inferior left li ngula. There is more patchy consolidation in the inferior right upper lobe. This could be secondary t o multiple areas of inflammatory change/pneumonia. 2. Adenopathy in the mediastinum. Is nonspecific. It could relate be reactive. 3. Mild bilateral pleural effusions. Electronically signed by: Ramiro Whitt MD Board Certified Radiologist 07/28/2018 5:50 PM EST
--- NOTE | 2018-07-28 17:56 | CT ---
EXAM DATE: 07/28/2018 5:49 PM EST AGE/SEX: 32 years / Female INDICATIONS: Abscess abdomen pain CLINICAL DATA: This is the patient's initial encounter. Patient reports that signs and symptoms have been present for 1 day and indicates a pain score of 5/10. MEDICAL/SURGICAL HISTORY: None. None. ORAL CONTRAST: Prescribed oral contrast ingested. RADIATION DOSE: 5.1 CTDI (mGy) ; Combined studies COMPARISON: No prior exams available for comparison. TECHNIQUE: Multiple contiguous axial images were obtained through the abdomen and pelvis following b olus infusion of 75 ml Omnipaque 350 (iohexol) nonionic water-soluble contrast as a cumulative dose for multiple exams. Prescribed oral contrast ingested. Using automated exposure control and adjustm ent of the mA and/or kV according to patient size, radiation dose was kept as low as reasonably achie vable to obtain optimal diagnostic quality images. DICOM format image data is available electronical ly for review and comparison. FINDINGS: Lower Lungs: Dense areas of consolidation are seen at the lateral aspects the lungs bilaterally. Ther e are mild bilateral pleural effusions. Liver: The liver appears heterogeneous. The liver is enlarged. The gallbladder wall is thickened. The mucosa appears to enhance. The gallbladder wall measures up to 9 mm in thickness. Spleen: The spleen is enlarged measuring 15.8 cm in length. Pancreas: Unremarkable without mass or calcification. Kidneys: Normal in size and shape. No evidence of mass or hydronephrosis. Adrenal Glands: Unremarkable. Aorta: The aorta and proximal iliac vessels are grossly unremarkable without aneurysmal dilation. Bowel/Mesentery: The bowel loops are grossly unremarkable. The cecum and sigmoid colon have a normal configuration. There is ascites seen in the pelvis. Abdominal Wall: Intact. Retroperitoneum: No evidence of adenopathy in the retrocrural, para-aortic, or deep pelvic regions. Bladder: Contours are smooth. Reproductive Organs: There is a 3.4 cm cystic area seen at the right adnexa. The uterus is normal in size. Free fluid is seen in the pelvic peritoneal cavity. Inguinal: The inguinal region is unremarkable without evidence of adenopathy. Bony Structures: Unremarkable. CONCLUSION: 1. Hepatosplenomegaly. 2. No abscess is seen. 3. Gallbladder wall thickening. This can be seen with hepatic disease. The cause of the gallbladder wall thickening is nonspecific. 4. 3.4 cm cystic area in the right adnexa likely related to a right ovarian cyst. 5. Mild ascites seen in the pelvis. Electronically signed by: Ramiro Whitt MD Board Certified Radiologist 07/28/2018 5:55 PM EST
[2018-07-28] MEDS ORDERED: Pharmacy Ordered Lab Info OTHER ONE (22:45)
[2018-07-29] MEDS: Sod Chloride 0.9% Inj 1,000 ML IV.CONT SCH ×2 (02:47→12:09)
[2018-07-29] MEDS: Piperacil/Tazo 3.375 GM Premix 3.375 GM/50 ML PIGGYBACK IV.SIG SCH ×2 (06:03→12:09)
[2018-07-29] MEDS ORDERED: Vancomycin Inj 750 MG in Sodium Chlor 0.9% Inj 250 ML IV.SIG SCH (08:00)
[2018-07-29] MEDS: Methadone 10 MG Tablet PO SCH ×2 (08:19→20:54)
[2018-07-29] MEDS: Lidocaine 5% Patch T-DERMAL SCH (08:20)
[2018-07-29] MEDS: Senna/Docusate Sodium 8.6/50 MG Tablet PO SCH ×2 (08:21→20:57)
[2018-07-29 10:41] LABS: Baso % (Auto) 0.6 % (0.0-2.0); Eos # (Auto) 0.1 th/mm3 (0.0-0.4); Eos % (Auto) 1.2 % (0.0-4.0); Hematocrit 27.8 % (35.0-46.0); Hemoglobin 9.6 gm/dL (11.6-15.3); Lymph # (Auto) 1.5 th/mm3 (1.0-4.8); Mean Corpuscular HGB Conc 34.4 % (32.0-36.0); Mean Corpuscular Hemoglobin 29.6 pg (27.0-34.0); Mean Corpuscular Volume 86.1 fL (80.0-100.0); Mean Platelet Volume 7.9 fL (7.0-11.0); Mono # (Auto) 0.6 th/mm3 (0.0-0.9); Neut # (Auto) 3.5 th/mm3 (1.8-7.7); Neut % (Auto) 61.2 % (16.0-70.0); Platelet Count 291 th/mm3 (150-450); Red Blood Count 3.23 mil/mm3 (4.00-5.30); Red Cell Distribution Width 15.4 % (11.6-17.2); White Blood Count 5.7 th/mm3 (4.0-11.0)
[2018-07-29 10:45] LABS: RPR Screen For Reflex FTA Nonreactive (Nonreactive)
[2018-07-29 10:54] LABS: Anion Gap 5 meq/L (5-15); Blood Urea Nitrogen 3 mg/dL (7-18); Carbon Dioxide 30.9 meq/L (21.0-32.0); Chloride 104 meq/L (98-107); Glomerular Filtration Rate Greater Than 89 mL/min (>89); Glucose,Random 122 mg/dL (74-106); Potassium 4.3 meq/L (3.5-5.1); Sodium 140 meq/L (136-145)
[2018-07-29 11:44] LABS: Hepatitits B Surface Antigen Nonreactive (Nonreactive)
[2018-07-29 12:28] LABS: Hepatitis A IgM Antibody Nonreactive (Nonreactive)
--- NOTE | 2018-07-29 14:57 | P.PNID ---
Subjective Remarks: Delayed entry patient seen at approximately 1 PM Ms. Garcia is a 32-year-old female with past medical history significant for IV drug abuse as recent as 2 days back with IV Dilaudid. Patient denies any prior history of endocarditis, abscesses or any history suggestive of epidural abscesses in the past. Patient now presents to the emergency department for evaluation of chest pain and back pain. She reports cough with productive sputum white sometimes yellow in color for at least last 4 days. Patient reports that overall her symptoms seem to have started around 7 days prior to admission. She endorses occasional fevers and chills but denies any night sweats. On admission she was febrile, tachycardic and met criteria for sepsis and workup initiated. Blood cultures done on admission are negative so far. Due to her history of IV drug abuse a 2D echo was done a tentative report was concerning for vegetation. Final report for 2D echo with no vegetations as reported by potato pancake frier who read the echo. Patient denies any tingling numbness in her upper or lower extremities. Patient denies any focal neurological deficits. She denies any bowel bladder incontinence. She denies loss of sensation especially in the saddle area. Infectious diseases consulted for evaluation and management of sepsis, possible endocarditis and pneumonia. Overnight events reviewed Complains of lumbar area back pain and swelling today. Cough and expectoration decreased. No fever No rash No diarrhea Antibiotics: Zosyn IV Vancomycin IV Lines: Line sites with no evidence of infection. Past Medical History: Reviewed. Allergies/Adverse Reactions: Allergies No Known Allergies Allergy (Verified 07/26/18 21:23) Objective Vital Signs 07/28/18 16:00 07/28/18 20:00 07/29/18 00:00 Temperature 99.8 F H 99.7 F H 99.6 F Pulse Rate 71 76 58 L Respiratory Rate 19 18 18 Blood Pressure 133/76 137/62 113/58 L Pulse Oximetry 98 100 96 07/29/18 04:00 07/29/18 08:00 07/29/18 12:00 Temperature 98.7 F 98.3 F 98.3 F Pulse Rate 56 L 54 L 57 L Respiratory Rate 18 16 16 Blood Pressure 126/58 L 119/54 L 119/64 Pulse Oximetry 96 94 L 100 Intake & Output 07/28/18 07/29/18 07/29/18 18:59 06:59 18:59 Intake Total 2107.5 / 2107.5 1597.5 / 1597.5 1257.5 / 1257.5 Balance 2107.5 / 2107.5 1597.5 / 1597.5 1257.5 / 1257.5 Weight 49.5 kg Intake: IV 1357.5 / 1357.5 1357.5 / 1357.5 1257.5 / 1257.5 NS Inj 1,000 ML @ 100 mls/hr IV 1000 / 1000 1000 / 1000 1000 / 1000 .CONT .Q10H [facility] Rx#:[id number] Zosyn 3.375 GM Premix 3.375 gm 100 / 100 100 / 100 In 50 ml @ 100 mls/hr IV.SIG Q6H [facility] Rx#:[id number] Vancomycin Inj 750 MG In NS Inj 257.5 / 257.5 257.5 / 257.5 257.5 / 257.5 250 ML @ 250 mls/hr IV.SIG Q8H [facility] Rx#:[id number] Oral 750 / 750 240 / 240 Other: # Voids 4 2 Date of Last Bowel Movement 07/27/18 # Bowel Movements 0 07/28/18 00:15 Sputum - Expectorated Sputum Gram Stain - Final 07/28/18 00:15 Sputum - Expectorated Sputum Sputum Culture - Preliminary Heavy growth normal respiratory ryan at 24 hours 07/26/18 22:05 Blood - Peripheral Aerobic Blood Culture - Preliminary No growth in 3 days 07/26/18 22:05 Blood - Peripheral Anaerobic Blood Culture - Preliminary No growth in 3 days 07/26/18 22:15 Blood - Peripheral Aerobic Blood Culture - Preliminary No growth in 3 days 07/26/18 22:15 Blood - Peripheral Anaerobic Blood Culture - Preliminary No growth in 3 days 07/26/18 23:15 Nasal Wash Influenza Types A,B Antigen - Final Negative for FLU A and B antigen Infection due to influenza A or B cannot be ruled out since the antigen present in the sample may be below the detection limit of the test. Lab - Hematology Results 07/29/18 10:14 WBC 5.7 RBC 3.23 L Hgb 9.6 L Hct 27.8 L MCV 86.1 MCH 29.6 MCHC 34.4 RDW 15.4 Plt Count 291 MPV 7.9 Neut % (Auto) 61.2 Lymph % (Auto) 27.0 Divide % (Auto) 10.0 H Eos % (Auto) 1.2 Baso % (Auto) 0.6 Neut # (Auto) 3.5 Lymph # (Auto) 1.5 [place] # (Auto) 0.6 Eos # (Auto) 0.1 Baso # (Auto) 0.0 WBC Differential . Differential Comment Auto diff final Lab - Chemistry Results 07/29/18 10:14 Sodium 140 Potassium 4.3 Chloride 104 Carbon Dioxide 30.9 Anion Gap 5 BUN 3 L Creatinine 0.55 Estimated GFR Greater than 89 Random Glucose 122 H Calcium 8.0 L Imaging: ITS Impressions Chest X-Ray 07/26/18 21:58 CONCLUSION: Bilateral infiltrates and small effusions Abdomen/Pelvis CT 07/28/18 00:00 CONCLUSION: 1. Hepatosplenomegaly. 2. No abscess is seen. 3. Gallbladder wall thickening. This can be seen with hepatic disease. The cause of the gallbladder wall thickening is nonspecific. 4. 3.4 cm cystic area in the right adnexa likely related to a right ovarian cyst. 5. Mild ascites seen in the pelvis. Chest CT 07/28/18 00:00 CONCLUSION: 1. Dense consolidation in the inferior lower lobes, inferior right middle lobe , and inferior left lingula. There is more patchy consolidation in the inferior right upper lobe. This could be secondary to multiple areas of inflammatory change/pneumonia. 2. Adenopathy in the mediastinum. Is nonspecific. It could relate be reactive. 3. Mild bilateral pleural effusions. Physical Exam: GENERAL: Well-nourished well-developed, not in acute distress SKIN: Cool and dry, no generalized rash HEAD: Atraumatic. Normocephalic. No temporal or scalp tenderness. EYES: Pupils equal round and reactive. Scleral icterus. No injection or drainage. No petechia ENT: Nothing abnormal detected NECK: Trachea midline. Supple, nontender, no meningeal signs. CARDIOVASCULAR: HS audible. RESPIRATORY: Clear to auscultation bilaterally. GASTROINTESTINAL: Abdomen soft nontender. MUSCULOSKELETAL: Extremities without clubbing, cyanosis. 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 NEUROLOGICAL: Alert oriented 3. Nonfocal. Psych cooperative IV line sites ok. Assessment and Plan - Plan Sepsis present on admission(fever, tachycardia, leukocytosis as well as source pneumonia) Pneumonia,? Septic emboli related. Rule out endocarditis. 2D echo was negative but if patient develops bacteremia especially if it is persistent she may need further workup including a NARENDRA IV drug abuse with Dilaudid Recommendations: DC Zosyn IV DC vancomycin IV target trough 15-20 Start Unasyn IV Check MRI L spine if epidural abscess or discitis will need IR consult for aspiration and biopsy. Please enter following orders when IR consult placed for cultures: Gram stain and culture, AFB stain and AFB culture, Fungal stain and Fungal culture. Follow lumbar area swelling clinically. If worsens then plan may need to be reevaluated. Patient says last IVDA was more than 6 months back. Follow blood cultures Follow cultures Follow clinical course Case discussed with patient I will be OOT from 07/31/18 to 08/08/18. Other ID MDs covering for me.
--- NOTE | 2018-07-29 16:25 | P.PNIM ---
Subjective Interval history: Reports that she is not short of breath. No complaints of chest pain. Her pain is controlled well. Physical Exam Vital signs: Last Vital Signs Temp 98.3 F 07/29/18 12:00 Pulse 57 L 07/29/18 12:00 Resp 16 07/29/18 12:00 BP 119/64 07/29/18 12:00 Pulse Ox 100 07/29/18 12:00 Intake & Output 07/27/18 07/28/18 07/29/18 07/30/18 06:59 06:59 06:59 06:59 Intake Total 1400 / 1400 4667.0 / 4667.0 3705.0 / 3705.0 1257.5 / 1257.5 Balance 1400 / 1400 4667.0 / 4667.0 3705.0 / 3705.0 1257.5 / 1257.5 Weight 44.2 kg 48 kg 49.5 kg Narrative: Thin well-developed white female no acute distress Cardiovascular regular rate and rhythm Lungs clear to auscultation bilaterally Alert and oriented x4. Results Labs CBC & Chem 7: 07/29/18 10:14 07/29/18 10:14 Labs: Microbiology 07/28/18 00:15 Sputum - Expectorated Sputum Gram Stain - Final 07/28/18 00:15 Sputum - Expectorated Sputum Sputum Culture - Preliminary Heavy growth normal respiratory ryan at 24 hours 07/26/18 22:05 Blood - Peripheral Aerobic Blood Culture - Preliminary No growth in 3 days 07/26/18 22:05 Blood - Peripheral Anaerobic Blood Culture - Preliminary No growth in 3 days 07/26/18 22:15 Blood - Peripheral Aerobic Blood Culture - Preliminary No growth in 3 days 07/26/18 22:15 Blood - Peripheral Anaerobic Blood Culture - Preliminary No growth in 3 days Imaging Imaging: Impressions Abdomen/Pelvis CT 07/28/18 00:00 CONCLUSION: 1. Hepatosplenomegaly. 2. No abscess is seen. 3. Gallbladder wall thickening. This can be seen with hepatic disease. The cause of the gallbladder wall thickening is nonspecific. 4. 3.4 cm cystic area in the right adnexa likely related to a right ovarian cyst. 5. Mild ascites seen in the pelvis. Chest CT 07/28/18 00:00 CONCLUSION: 1. Dense consolidation in the inferior lower lobes, inferior right middle lobe , and inferior left lingula. There is more patchy consolidation in the inferior right upper lobe. This could be secondary to multiple areas of inflammatory change/pneumonia. 2. Adenopathy in the mediastinum. Is nonspecific. It could relate be reactive. 3. Mild bilateral pleural effusions. Assessment and Plan Plan 32-year-old white female with a history of IV drug abuse with a history of IV Dilaudid use admitted with sepsis. Hemodynamically stable upon admission Sepsis present on admission with fever tachycardia leukocytosis as well as source of pneumonia -Her initial bedside sonogram was concerning for tricuspid valve vegetation. Echo by cardiology from 07/27 is negative for vegetation. If blood cultures become positive she will need further workup with NARENDRA CT chest reviewed showed dense consolidation in the inferior lower lobes inferior right middle lobe and inferior left lingula and more patchy consolidation in the inferior right upper lobe -IV Unasyn started by ID MRI lumbar spine to rule out epidural abscess or discitis if possible need IR consult for aspiration biopsy. -Blood cultures has been negative to date. Discussed with infectious disease, if blood culture remains negative and MRI of the lumbar spine is negative we will continue monitor patient clinically and consideration to switch from IV Unasyn to p.o. antibiotics Augmentin for 2 more weeks of antibiotics. IV drug abuse -Patient counseled, methadone to prevent withdrawal. Leukocytosis Improved since admission. Hypokalemia Repleted and resolved DVT prophylaxis no mechanical or pharmaceutical VTE prophalaxis administered due to patient's low risk assessment of VTE. Encouraged ambulation. Progress Note: Quality VTE Deep Vein Thrombosis/Pulmonary Embolism Present on Admission: No
[2018-07-29] MEDS ORDERED: Gadobutrol PF 7.5 MMOL/7.5 ML Vial (for RAD) IV.SIG ONE (16:47)
--- NOTE | 2018-07-29 17:05 | MR ---
EXAM DATE: 07/29/2018 4:50 PM EST AGE/SEX: 32 years / Female INDICATIONS: Discitis. Epidural abcess. Lower back pain for three days. CLINICAL DATA: This is the patient's initial encounter. Patient reports that signs and symptoms have been present for 1 day and indicates a pain score of 7/10. MEDICAL/SURGICAL HISTORY: . IVDU. None. COMPARISON: No prior exams available for comparison. TECHNIQUE: Multiplanar, multisequence MRI examination of the lumbar spine was performed without and with 5 ml Gadavist (gadobutrol) contrast as a single exam dose. FINDINGS: The most caudal-appearing lumbar vertebra is numbered as L5. Vertebra: Homogeneous signal. Normal alignment. Conus: Normal level and configuration. Post Contrast: No abnormal areas of contrast enhancement are seen. There are disc protrusions present at both T11-12 and T12-L1. The T11-12 level is not imaged in the a xial plane on this scan of the lumbar spine, however the protrusion appears very mild without signifi cant anatomic compromise. T12-L1: Broad mild right paracentral disc protrusion/extrusion with mild indentation of the ventral thecal sac. Disc material extends cephalad along the inferior portion of the posterior aspect of the T12 vertebral body. The foramina appear satisfactory. L1-L2: The thecal sac has a normal diameter. No evidence of disc bulge or protrusion. The neural foramina are patent bilaterally. L2-L3: The thecal sac has a normal diameter. No evidence of disc bulge or protrusion. The neural foramina are patent bilaterally. L3-L4: The thecal sac has a normal diameter. No evidence of disc bulge or protrusion. The neural foramina are patent bilaterally. L4-L5: The thecal sac has a normal diameter. No evidence of disc bulge or protrusion. The neural foramina are patent bilaterally. L5-S1: The thecal sac has a normal diameter. No evidence of disc bulge or protrusion. The neural foramina are patent bilaterally. CONCLUSION: Small disc protrusions in the low thoracic spine. No evidence of discitis or epidural abscess Electronically signed by: Ramiro Smiley MD Board Certified Radiologist 07/29/2018 5:04 PM EST
[2018-07-29] MEDS: Ampicillin/Sulbactam Inj 1,500 MG in Sodium Chloride 0.9% Inj 100 ML IV.SIG SCH ×2 (18:31→21:00)
[2018-07-29] MEDS ORDERED: Pharmacy Ordered Lab Info OTHER ONE (23:45)
[2018-07-30] MEDS: Ampicillin/Sulbactam Inj 1,500 MG in Sodium Chloride 0.9% Inj 100 ML IV.SIG SCH ×6 (05:34→21:30)
[2018-07-30] MEDS: Methadone 10 MG Tablet PO SCH ×2 (08:24→20:24)
[2018-07-30] MEDS: Lidocaine 5% Patch T-DERMAL SCH (08:25)
[2018-07-30] MEDS: Senna/Docusate Sodium 8.6/50 MG Tablet PO SCH ×2 (08:26→20:31)
--- NOTE | 2018-07-30 09:43 | P.PNIM ---
Subjective Interval history: Follow up for sepsis, leukocytosis, Hypokalemia and IVDU Patient sitting in the bed c/o swelling on her arms and lower back Pain controlled with pain medications Denies any chest pain or SOB. Denies any fever or chills, abdominal pain, nausea or vomiting Physical Exam Vital signs: Last Vital Signs Temp 99.0 F 07/30/18 08:00 Pulse 56 L 07/30/18 08:00 Resp 14 07/30/18 08:00 BP 140/63 07/30/18 08:00 Pulse Ox 96 07/30/18 08:00 Intake & Output 07/28/18 07/29/18 07/30/18 07/31/18 06:59 06:59 06:59 06:59 Intake Total 4667.0 / 4667.0 3705.0 / 3705.0 2847.5 / 2847.5 Balance 4667.0 / 4667.0 3705.0 / 3705.0 2847.5 / 2847.5 Weight 48 kg 49.5 kg 49.3 kg Narrative: GENERAL: Thin appearing, young female in no acute distress SKIN: Warm and dry. HEAD: Atraumatic. Normocephalic. NECK: Trachea midline. No JVD. CARDIOVASCULAR: Regular rate and rhythm. RESPIRATORY: No accessory muscle use. scattered slight rhonci on left lower lobe to auscultation. Breath sounds equal bilaterally. GASTROINTESTINAL: Abdomen soft, non-tender, slight abdominal distention. Hepatic and splenic margins not palpable. MUSCULOSKELETAL: Extremities without clubbing, cyanosis. Trace edema on waist area and lower back. No obvious deformities. NEUROLOGICAL: Awake and alert and oriented x 4. No obvious cranial nerve deficits. Motor grossly within normal limits. Five out of 5 muscle strength in the arms and legs. Normal speech. PSYCHIATRIC: Appropriate mood and affect; insight and judgment normal. Results Labs CBC & Chem 7: 07/29/18 10:14 07/29/18 10:14 Labs: Microbiology 07/28/18 00:15 Sputum - Expectorated Sputum Gram Stain - Final 07/28/18 00:15 Sputum - Expectorated Sputum Sputum Culture - Preliminary Heavy growth normal respiratory ryan at 24 hours 07/26/18 22:05 Blood - Peripheral Aerobic Blood Culture - Preliminary No growth in 3 days 07/26/18 22:05 Blood - Peripheral Anaerobic Blood Culture - Preliminary No growth in 3 days 07/26/18 22:15 Blood - Peripheral Aerobic Blood Culture - Preliminary No growth in 3 days 07/26/18 22:15 Blood - Peripheral Anaerobic Blood Culture - Preliminary No growth in 3 days Imaging Imaging: Impressions Lumbar Spine MRI 07/29/18 00:00 CONCLUSION: Small disc protrusions in the low thoracic spine. No evidence of discitis or epidural abscess Assessment and Plan Plan This is [id number] white female with a history of IV drug abuse with a history of IV Dilaudid use admitted with sepsis. Hemodynamically stable upon admission Sepsis present on admission with fever tachycardia leukocytosis as well as source of pneumonia -Her initial bedside sonogram was concerning for tricuspid valve vegetation. Echo by cardiology from 07/27 is negative for vegetation. If blood cultures become positive she will need further workup with NARENDRA -CT chest reviewed showed dense consolidation in the inferior lower lobes inferior right middle lobe and inferior left lingula and more patchy consolidation in the inferior right upper lobe -continue IV Unasyn started by ID -MRI lumbar spine: No Discitis or epidural abscess -Blood cultures : no growth in 3 days, follow Cultures - Discussed with infectious disease, if blood culture remains negative and MRI of the lumbar spine is negative we will continue monitor patient clinically and consideration to switch from IV Unasyn to p.o. antibiotics Augmentin for 2 more weeks of antibiotics. IV drug abuse with Dilaudid -Patient counseled - methadone to prevent withdrawal. Leukocytosis Improved since admission -monitor CBC Hypokalemia Repleted and resolved -monitor BMP DVT prophylaxis no mechanical or pharmaceutical VTE prophalaxis administered due to patient's low risk assessment of VTE. Encouraged ambulation. Code Status: full code Discussed Condition With: patient and nurse Discharge Planning: Discharge when finished with IV antibiotic and cleared with ID Progress Note: Quality VTE Deep Vein Thrombosis/Pulmonary Embolism Present on Admission: No
[2018-07-30] MEDS: Sod Chloride 0.9% Inj 1,000 ML IV.CONT SCH ×2 (10:12)
[2018-07-30] MEDS: guaiFENesin/Dextromethorphan 200 MG/20 MG 10 ML UDC PO PRN (20:30)
[2018-07-31] MEDS: Ampicillin/Sulbactam Inj 1,500 MG in Sodium Chloride 0.9% Inj 100 ML IV.SIG SCH ×4 (05:56→21:57)
[2018-07-31] MEDS: Methadone 10 MG Tablet PO SCH ×2 (09:27→20:10)
[2018-07-31] MEDS: Lidocaine 5% Patch T-DERMAL SCH (09:28)
[2018-07-31] MEDS: Senna/Docusate Sodium 8.6/50 MG Tablet PO SCH ×2 (09:29→20:10)
--- NOTE | 2018-07-31 16:46 | P.PNIM ---
Subjective Interval history: Follow up for sepsis, possible septic emboli, leukocytosis, Hypokalemia and IVDU Patient seen and examined, sitting on the bed, wanted to go home. Patient states that she feels good and requested to go home. Patient states that she can come back for antibiotic IV administration. Patient denies any pain or any discomfort. Patient denies any headache or dizziness, denies any chest pain or shortness of breath, denies any abdominal pain, nausea, vomiting, diarrhea or constipation. Nurse reported patient request to go home. Spoke with family member, discussed patient needing to go home to take care of her children. Parents stated that if we do not send her home she will leave the children here to us. Have the supervisor wash house speak to the family and patient and discuss hospital rules. Physical Exam Vital signs: Last Vital Signs Temp 98.0 F 07/31/18 12:00 Pulse 56 L 07/31/18 12:00 Resp 14 07/31/18 12:00 BP 117/64 07/31/18 12:00 Pulse Ox 98 07/31/18 12:00 Intake & Output 07/29/18 07/30/18 07/31/18 08/01/18 06:59 06:59 06:59 06:59 Intake Total 3705.0 / 3705.0 2847.5 / 2847.5 4060 / 4060 200 / 200 Balance 3705.0 / 3705.0 2847.5 / 2847.5 4060 / 4060 200 / 200 Weight 49.5 kg 49.3 kg 42 kg Narrative: GENERAL: Thin appearing, young female in no acute distress SKIN: Warm and dry. HEAD: Atraumatic. Normocephalic. NECK: Trachea midline. No JVD. CARDIOVASCULAR: Regular rate and rhythm. RESPIRATORY: No accessory muscle use. scattered slight rhonci on left lower lobe to auscultation. Breath sounds equal bilaterally. GASTROINTESTINAL: Abdomen soft, non-tender, slight abdominal distention. Hepatic and splenic margins not palpable. MUSCULOSKELETAL: Extremities without clubbing, cyanosis. Trace edema on waist area and lower back. No obvious deformities. NEUROLOGICAL: Awake and alert and oriented x 4. No obvious cranial nerve deficits. Motor grossly within normal limits. Five out of 5 muscle strength in the arms and legs. Normal speech. PSYCHIATRIC: Appropriate mood and affect; insight and judgment normal. Results Labs CBC & Chem 7: 12/27/18 10:14 07/29/18 10:14 Labs: Microbiology 07/26/18 22:05 Blood - Peripheral Aerobic Blood Culture - Final No growth in 5 days 07/26/18 22:05 Blood - Peripheral Anaerobic Blood Culture - Final No growth in 5 days 07/26/18 22:15 Blood - Peripheral Aerobic Blood Culture - Final No growth in 5 days 07/26/18 22:15 Blood - Peripheral Anaerobic Blood Culture - Final No growth in 5 days 07/28/18 00:15 Sputum - Expectorated Sputum Gram Stain - Final 07/28/18 00:15 Sputum - Expectorated Sputum Sputum Culture - Final Heavy growth normal respiratory ryan Assessment and Plan Plan This is [id number] white female with a history of IV drug abuse with a history of IV Dilaudid use admitted with sepsis. Hemodynamically stable upon admission Sepsis present on admission with fever tachycardia leukocytosis as well as source of pneumonia -Her initial bedside sonogram was concerning for tricuspid valve vegetation. Echo by cardiology from 07/27 is negative for vegetation. If blood cultures become positive she will need further workup with NARENDRA -CT chest reviewed showed dense consolidation in the inferior lower lobes inferior right middle lobe and inferior left lingula and more patchy consolidation in the inferior right upper lobe -continue IV Unasyn per ID recommendation -MRI lumbar spine: No Discitis or epidural abscess -Blood cultures : no growth in 3 days, follow Cultures - Discussed with infectious disease, if blood culture remains negative and MRI of the lumbar spine is negative we will continue monitor patient clinically and consideration to switch from IV Unasyn to p.o. antibiotics Augmentin for 2 more weeks of antibiotics. -Discussed with infectious disease patient will be here over the weekend and will reevaluate next week to change to p.o. antibiotic -Monitor CBC with differential, CMP, and CRP weekly IV drug abuse with Dilaudid -Patient counseled - methadone to prevent withdrawal. Leukocytosis Improved since admission -monitor CBC Hypokalemia Repleted and resolved -monitor BMP DVT prophylaxis no mechanical or pharmaceutical VTE prophalaxis administered due to patient's low risk assessment of VTE. Encouraged ambulation. Discharge Planning: Plan for IV antibiotic treatment over the weekend, will reevaluate next week with ID for discharge planning Progress Note: Quality VTE Deep Vein Thrombosis/Pulmonary Embolism Present on Admission: No
[2018-08-01] MEDS: Ampicillin/Sulbactam Inj 1,500 MG in Sodium Chloride 0.9% Inj 100 ML IV.SIG SCH ×4 (04:04→22:20)
[2018-08-01] MEDS: Methadone 10 MG Tablet PO SCH ×2 (09:06→20:41)
[2018-08-01] MEDS: Lidocaine 5% Patch T-DERMAL SCH (09:07)
[2018-08-01] MEDS: Senna/Docusate Sodium 8.6/50 MG Tablet PO SCH ×2 (09:07→20:42)
--- NOTE | 2018-08-01 13:34 | P.PNIM ---
Subjective Interval history: Follow up for sepsis, possible septic emboli, leukocytosis, Hypokalemia and IVDU Patient laying in bed, sleeping assessment patient denies any pain or any discomfort. Patient stated sometimes coughing and chest vomiting with coughing however not at the moment. Patient denies any fever or chills denies any headache or dizziness, abdominal pain, nausea, vomiting, diarrhea or constipation Lungs reported no acute Physical Exam Vital signs: Last Vital Signs Temp 97.8 F 08/01/18 12:00 Pulse 50 L 08/01/18 12:00 Resp 17 08/01/18 12:00 BP 121/69 08/01/18 12:00 Pulse Ox 99 08/01/18 12:00 Intake & Output 07/30/18 07/31/18 08/01/18 08/02/18 06:59 06:59 06:59 06:59 Intake Total 2847.5 / 2847.5 4060 / 4060 4060 / 4060 100 / 100 Balance 2847.5 / 2847.5 4060 / 4060 4060 / 4060 100 / 100 Weight 49.3 kg 42 kg 46.6 kg Narrative: GENERAL: Thin appearing, young female in no acute distress SKIN: Warm and dry. HEAD: Atraumatic. Normocephalic. NECK: Trachea midline. No JVD. CARDIOVASCULAR: Regular rate and rhythm. RESPIRATORY: No accessory muscle use. scattered slight rhonci on left lower lobe to auscultation. Breath sounds equal bilaterally. GASTROINTESTINAL: Abdomen soft, non-tender, slight abdominal distention. Hepatic and splenic margins not palpable. MUSCULOSKELETAL: Extremities without clubbing, cyanosis. Trace edema on waist area and lower back. No obvious deformities. NEUROLOGICAL: Awake and alert and oriented x 4. No obvious cranial nerve deficits. Motor grossly within normal limits. Five out of 5 muscle strength in the arms and legs. Normal speech. PSYCHIATRIC: Appropriate mood and affect; insight and judgment normal. Results Labs CBC & Chem 7: 07/29/18 10:14 07/29/18 10:14 Labs: Microbiology 07/26/18 22:05 Blood - Peripheral Aerobic Blood Culture - Final No growth in 5 days 07/26/18 22:05 Blood - Peripheral Anaerobic Blood Culture - Final No growth in 5 days 07/26/18 22:15 Blood - Peripheral Aerobic Blood Culture - Final No growth in 5 days 07/26/18 22:15 Blood - Peripheral Anaerobic Blood Culture - Final No growth in 5 days Assessment and Plan Plan This is [id number] white female with a history of IV drug abuse with a history of IV Dilaudid use admitted with sepsis. Hemodynamically stable upon admission Sepsis present on admission with fever tachycardia leukocytosis as well as source of pneumonia -Her initial bedside sonogram was concerning for tricuspid valve vegetation. Echo by cardiology from 07/27 is negative for vegetation. If blood cultures become positive she will need further workup with NARENDRA -CT chest reviewed showed dense consolidation in the inferior lower lobes inferior right middle lobe and inferior left lingula and more patchy consolidation in the inferior right upper lobe -continue IV Unasyn per ID recommendation -MRI lumbar spine: No Discitis or epidural abscess -Blood cultures : no growth in 3 days, follow Cultures - Discussed with ID:, if blood culture remains negative and MRI of the lumbar spine is negative we will continue monitor patient clinically and consideration to switch from IV Unasyn to p.o. antibiotics Augmentin for 2 more weeks of antibiotics. -Discussed with ID-Dr Harden: patient will be here over the weekend and will reevaluate next week for possible change to p.o. antibiotic -Monitor CBC with differential, CMP, and CRP weekly IV drug abuse with Dilaudid -Patient counseled - methadone to prevent withdrawal. Leukocytosis Improved since admission -monitor CBC Hypokalemia Repleted and resolved -monitor BMP DVT prophylaxis no mechanical or pharmaceutical VTE prophalaxis administered due to patient's low risk assessment of VTE. Encouraged ambulation. Discharge Planning: Plan for IV antibiotic treatment over the weekend, will reevaluate next week with ID for discharge planning Progress Note: Quality VTE Deep Vein Thrombosis/Pulmonary Embolism Present on Admission: No
[2018-08-02] MEDS: Ampicillin/Sulbactam Inj 1,500 MG in Sodium Chloride 0.9% Inj 100 ML IV.SIG SCH ×3 (04:45→15:05)
[2018-08-02 08:02] LABS: Baso % (Auto) 0.9 % (0.0-2.0); Eos # (Auto) 0.1 th/mm3 (0.0-0.4); Eos % (Auto) 1.5 % (0.0-4.0); Hematocrit 38.4 % (35.0-46.0); Hemoglobin 12.6 gm/dL (11.6-15.3); Lymph # (Auto) 2.1 th/mm3 (1.0-4.8); Lymph % (Auto) 44.1 % (9.0-44.0); Mean Corpuscular HGB Conc 32.7 % (32.0-36.0); Mean Corpuscular Hemoglobin 28.6 pg (27.0-34.0); Mean Corpuscular Volume 87.5 fL (80.0-100.0); Mean Platelet Volume 7.1 fL (7.0-11.0); Mono # (Auto) 0.3 th/mm3 (0.0-0.9); Mono % (Auto) 6.4 % (0.0-8.0); Neut # (Auto) 2.2 th/mm3 (1.8-7.7); Neut % (Auto) 47.1 % (16.0-70.0); Platelet Count 428 th/mm3 (150-450); Red Blood Count 4.39 mil/mm3 (4.00-5.30); Red Cell Distribution Width 15.4 % (11.6-17.2); White Blood Count 4.7 th/mm3 (4.0-11.0)
[2018-08-02 08:26] LABS: Alanine Aminotransferase 37 U/L (10-53); Albumin 2.4 g/dL (3.4-5.0); Anion Gap 8 meq/L (5-15); Aspartate Aminotransferase 25 U/L (15-37); Blood Urea Nitrogen 7 mg/dL (7-18); Calcium 9.1 mg/dL (8.5-10.1); Carbon Dioxide 32.2 meq/L (21.0-32.0); Chloride 100 meq/L (98-107); Glomerular Filtration Rate Greater Than 89 mL/min (>89); Glucose,Random 71 mg/dL (74-106); Potassium 4.4 meq/L (3.5-5.1); Sodium 140 meq/L (136-145)
[2018-08-02 08:29] LABS: Alkaline Phosphatase 259 U/L (45-117); Total Protein 8.2 g/dL (6.4-8.2)
[2018-08-02] MEDS: Methadone 10 MG Tablet PO SCH (09:00)
[2018-08-02] MEDS: Senna/Docusate Sodium 8.6/50 MG Tablet PO SCH (09:02)
[2018-08-02] MEDS: Lidocaine 5% Patch T-DERMAL SCH (09:02)
[2018-08-02] MEDS: guaiFENesin/Dextromethorphan 200 MG/20 MG 10 ML UDC PO PRN (15:26)
--- NOTE | 2018-08-02 16:08 | P.PNIM ---
Physical Exam Vital signs: Last Vital Signs Temp 98.0 F 08/02/18 12:00 Pulse 53 L 08/02/18 12:00 Resp 18 08/02/18 12:00 BP 119/59 L 08/02/18 12:00 Pulse Ox 96 08/02/18 12:00 Intake & Output 07/31/18 08/01/18 08/02/18 08/03/18 06:59 06:59 06:59 06:59 Intake Total 4060 / 4060 4060 / 4060 1120 / 1120 100 / 100 Balance 4060 / 4060 4060 / 4060 1120 / 1120 100 / 100 Weight 42 kg 46.6 kg 46.6 kg Narrative: GENERAL: Thin appearing, young female in no acute distress SKIN: Warm and dry. HEAD: Atraumatic. Normocephalic. NECK: Trachea midline. No JVD. CARDIOVASCULAR: Regular rate and rhythm. RESPIRATORY: No accessory muscle use. expiratory wheezes on left lower lobe to auscultation. Breath sounds equal bilaterally. GASTROINTESTINAL: Abdomen soft, non-tender, slight abdominal distention. Hepatic and splenic margins not palpable. MUSCULOSKELETAL: Extremities without clubbing, cyanosis. Trace edema on waist area and lower back. No obvious deformities. NEUROLOGICAL: Awake and alert and oriented x 4. No obvious cranial nerve deficits. Motor grossly within normal limits. Five out of 5 muscle strength in the arms and legs. Normal speech. PSYCHIATRIC: Appropriate mood and affect; insight and judgment normal. Results Labs CBC & Chem 7: 08/02/18 07:31 08/02/18 07:31 Assessment and Plan Plan This is [id number] white female with a history of IV drug abuse with a history of IV Dilaudid use admitted with sepsis. Hemodynamically stable upon admission Sepsis present on admission with fever tachycardia leukocytosis as well as source of pneumonia -Her initial bedside sonogram was concerning for tricuspid valve vegetation. Echo by cardiology from 07/27 is negative for vegetation. If blood cultures become positive she will need further workup with NARENDRA -CT chest reviewed showed dense consolidation in the inferior lower lobes inferior right middle lobe and inferior left lingula and more patchy consolidation in the inferior right upper lobe -continue IV Unasyn per ID recommendation -MRI lumbar spine: No Discitis or epidural abscess -Blood cultures : no growth in 3 days, follow Cultures - Discussed with ID:, if blood culture remains negative and MRI of the lumbar spine is negative we will continue monitor patient clinically and consideration to switch from IV Unasyn to p.o. antibiotics Augmentin for 2 more weeks of antibiotics. -Discussed with ID-Dr Harden: patient will be here over the weekend and will reevaluate next week for possible change to p.o. antibiotic -Monitor CBC with differential, CMP, and CRP weekly IV drug abuse with Dilaudid -Patient counseled - methadone to prevent withdrawal. Tobacco abuse Asthma -add duonebs treatment -add symbicort -monitor respiratory status Leukocytosis Improved since admission -monitor CBC Hypokalemia Repleted and resolved -monitor BMP DVT prophylaxis no mechanical or pharmaceutical VTE prophalaxis administered due to patient's low risk assessment of VTE. Encouraged ambulation. Discharge Planning: Plan for IV antibiotic treatment over the weekend, will reevaluate next week with ID for discharge planning Progress Note: Quality VTE Deep Vein Thrombosis/Pulmonary Embolism Present on Admission: No
--- NOTE | 2018-08-02 18:35 | P.DS ---
DS: Providers Date of admission: 07/26/18 23:48 Primary care physician: No Primary Care Physician Consults: 07/27/18 00:37 Consult to Infectious Diseases Routine Consulting Provider: Cinthya Harden Reason for Consultation: Concern for endocarditis, bedside ultrasound revealed vegetation on mitral valve Notified:: Service Spoke with:: radha Date Notified:: 07/27/18 Time Notified:: 01:28 Ordering Provider: LEIGH Brief History from admission: 32-year-old female with a past medical history significant for IV drug abuse presents to the emergency department for evaluation of back, neck, chest pain and cough productive of white sputum times 2 days. She endorses accompanying fever/chills. She is febrile and tachycardic on admission. Bedside ultrasound done in the emergency department showed large vegetation on the mitral valve leaflet. The patient reports her back pain is migratory and transient stating sometimes it is up by her shoulders and sometimes it is in her lower back. She is ambulating without difficulty. No lower extremity weakness or loss of bowel/ bladder. No abdominal pain. No nausea/vomiting/diarrhea. DS: Summary Mrs. Garcia is a 32 year old female. She has a history of IV Drug Abuse and came into the ER with complaints of neck, back, and chest pain. Productive cough was present also. Pneumonia was seen on imaging. Work up also included an echocardiogram, which showed no evidence of infective endocarditis. An MRI of the spine showed no abscess or discitis. Patient has responded to antibiotics and is feeling better and requesting discharge. Negative work up plan had been to continue augmentin for two weeks. Medically stable and cleared today for discharge to home with augmentin for two weeks and probiotics while on antibiotics. Discharge today. Time Spent with Patient Total time spent providing and/or coordinating discharge services: Quality: VTE Deep Vein Thrombosis/Pulmonary Embolism Present on Admission: No Results Labs on day of discharge: Labs from last 24 hours 08/02/18 08/02/18 07:31 07:31 WBC 4.7 RBC 4.39 Hgb 12.6 Hct 38.4 MCV 87.5 MCH 28.6 MCHC 32.7 RDW 15.4 Plt Count 428 D MPV 7.1 Neut % (Auto) 47.1 Lymph % (Auto) 44.1 H [place] % (Auto) 6.4 Eos % (Auto) 1.5 Baso % (Auto) 0.9 Neut # (Auto) 2.2 Lymph # (Auto) 2.1 [place] # (Auto) 0.3 Eos # (Auto) 0.1 Baso # (Auto) 0.0 WBC Differential . Differential Comment Auto diff final Sodium 140 Potassium 4.4 Chloride 100 Carbon Dioxide 32.2 H Anion Gap 8 BUN 7 Creatinine 0.59 Estimated GFR Greater than 89 Random Glucose 71 L Calcium 9.1 Total Bilirubin 0.4 AST 25 ALT 37 Alkaline Phosphatase 259 H C-Reactive Protein 3.60 H Total Protein 8.2 Albumin 2.4 L Impressions ITS Impressions Chest X-Ray 07/26/18 21:58 CONCLUSION: Bilateral infiltrates and small effusions Abdomen/Pelvis CT 07/28/18 00:00 CONCLUSION: 1. Hepatosplenomegaly. 2. No abscess is seen. 3. Gallbladder wall thickening. This can be seen with hepatic disease. The cause of the gallbladder wall thickening is nonspecific. 4. 3.4 cm cystic area in the right adnexa likely related to a right ovarian cyst. 5. Mild ascites seen in the pelvis. Chest CT 07/28/18 00:00 CONCLUSION: 1. Dense consolidation in the inferior lower lobes, inferior right middle lobe , and inferior left lingula. There is more patchy consolidation in the inferior right upper lobe. This could be secondary to multiple areas of inflammatory change/pneumonia. 2. Adenopathy in the mediastinum. Is nonspecific. It could relate be reactive. 3. Mild bilateral pleural effusions. Lumbar Spine MRI 07/29/18 00:00 CONCLUSION: Small disc protrusions in the low thoracic spine. No evidence of discitis or epidural abscess Discharge Plan Discharge Disposition Patient Disposition: Discharge Home Discharge Condition Condition: Stable Discharge Order Discharge Orders: Discharge Order (Routine); Ordered 08/02/18 Ordered By: Jairo Kimbrough Discharge Details Anticipated Discharge Date: 08/02/18 Physicians Team Primary Care Provider: Primary Care Kitty Zamora Attending Provider: Jairo Kimbrough Other Providers: Cinthya Harden Rxs /Orders / Referrals /Forms Prescriptions: New amoxicillin-pot clavulanate [Augmentin] 500-125 mg tablet 1 tab PO Q12H Qty: 28 RF: 0 Lactobacillus acidophilus 500 million cell capsule 500 mmu cells PO TID Qty: 42 RF: 0 No Action No Known Home Medications RF: 0 Referrals: Primary Care Kitty Zamora [Primary Care Provider] - See Instructions Discharge Instructions Patient Printed Instructions: Chest Pain (ED) Discharge Interventions Interventions: Discharge Planning - Case Management Last Done: 08/02/18 14:07 Status ED Status: Left Department
--- NOTE | 2018-08-02 19:10 | XR ---
EXAM DATE: 08/02/2018 6:56 PM EST AGE/SEX: 32 years / Female INDICATIONS: Cough. CLINICAL DATA: This is the patient's initial encounter. Patient reports that signs and symptoms have been present for 1 week and indicates a pain score of 0/10. MEDICAL/SURGICAL HISTORY: None. None. COMPARISON: [facility] – [place], CHEST 1V SINGLE AP, 07/26/2018. . FINDINGS: Patchy bilateral lower lobe nearly nodular airspace disease with trace bilateral pleural effusions. C ardiac and mediastinal contours are stable. Remainder of the exam is unchanged. CONCLUSION: 1. No significant interval change. 2. Stable patchy bilateral lower lobe nodular airspace disease and trace pleural effusions. Electronically signed by: Ector Newman MD Board Certified Radiologist 08/02/2018 7:09 PM CHRIS T
[2018-08-02] MEDS ORDERED: Budesonide-Formoterol 160/4.5 MCG 6 GM Inhaler INH SCH (21:00)
== END 2018-08-02 20:00 | disposition home or self-care (01) | DRG 871 ==
LOC: NEPC 21:17 → NEDA 23:48 → N07 07-27 02:13
PROVIDERS: ADMIT Hospitalist; ATTEND Hospitalist
CPT/HCPCS: 71010; 71045; 71260; 72158; 74177; 80048; 80053; 80074; 80202; 80307; 81001; 83605; 83735; 85025; 86140; 86592; 87040; 87070; 87205; 87275; 87276; 87389; 87491; 87591; 87804; 90761; 90765; 93005; 93306; 94150; 96361; 96365; 99291; A9585; J0295; J2270; J2543; J3370; J7030; J7050; Q9963; Q9967